=== PATIENT | female | born 1980 ===

== ENCOUNTER 2020-08-27 13:00 | Outpatient (REF) | payer OTHER, SELFPAY ==
[2020-08-27 14:10] LABS: MANUAL DIFF FLAG NO
[2020-08-27 14:12] LABS: Basophils Absolute Auto 0.1 X10*3/uL (0.0-0.2); Basophils Percent Auto 0.5 % (0-2); Eosinophils Absolute Auto 0.1 X10*3/uL (0.0-0.4); Eosinophils Percent Auto 0.5 % (0-4); Hematocrit 39.3 % (37-47); Hemoglobin 12.9 g/dl (12.0-16.0); Imm Gran Abs Auto 0.04 X10*3/uL (0.00-0.03); Imm Gran Pct Auto 0.3 % (0.0-0.4); Lymphocytes Absolute Auto 2.3 X10*3/uL (1.2-4.9); Lymphocytes Percent Auto 18.9 % (20-40); Mean Corpuscular HGB Conc 32.8 g/dl (31.0-35.0); Mean Corpuscular Hemoglobin 28.7 pg (27.0-33.0); Mean Corpuscular Volume 87.3 fL (80-98); Monocytes Absolute Auto 0.6 X10*3/uL (0.1-1.2); Monocytes Percent Auto 4.8 % (2-11); Neutrophils Absolute Auto 9.3 X10*3/uL (2.0-8.3); Platelet Count 365 X10*3/uL (160-400); White Blood Count 12.4 X10*3/uL (4.8-10.8)
[2020-08-27 14:58] LABS: Alanine Aminotransferase 8 U/L (0-31); Albumin Level 3.8 g/dL (3.5-5.0); Alkaline Phosphatase 49 U/L (39-117); Anion Gap 12 (12-20); Aspartate Amino Transferase 12 U/L (5-31); Bilirubin Total 0.6 mg/dL (0.0-1.0); Blood Urea Nitrogen 9 mg/dL (9-16); Calcium 9.1 mg/dL (8.4-10.2); Carbon Dioxide 30 mmol/L (22-29); Chloride 99 mmol/L (96-108); Cholesterol 166 mg/dL; Estimated Glomerular Filt Rate > 60; Glucose Random 100 mg/dL (60-115); HDL Cholesterol 48 mg/dL; LDL Cholesterol Calculated 106 mg/dl; Potassium 3.8 mmol/L (3.3-5.1); Sodium 137 mmol/L (135-145); Total Protein 6.8 g/dL (6.5-8.0); Triglycerides 62 mg/dL
[2020-08-27 15:20] LABS: TSH reflex Free T4 7.69 uIU/mL (0.32-4.0)
[2020-08-27 15:55] LABS: Free T4 (Free Thyroxine) 1.11 ng/dL (0.71-1.85)
[2020-08-29 00:22] LABS: LDL Cholesterol Direct 95 mg/dL (<100)
== END 2020-08-27 13:01 | disposition home or self-care (01) ==
LOC: HO.WFDLDS 13:00
PROVIDERS: Visit Provider Family Medicine
DX: Z00.00 Encounter for general adult medical examination without abnormal findings (principal); K52.9 Noninfective gastroenteritis and colitis, unspecified; R93.89 Abnormal findings on diagnostic imaging of other specified body structures
CPT/HCPCS: 36415; 80053; 80061; 83721; 84439; 84443; 85025

== ENCOUNTER 2021-06-20 19:33 | Outpatient (REF) | payer OTHER, SELFPAY | END 2021-06-20 19:34 | disposition home or self-care (01) | LOC: HO.LNP 19:33 | PROVIDERS: Visit Provider Family Medicine | DX: R30.0 Dysuria (principal) | CPT/HCPCS: 87086; 87088; 87186 ==

== ENCOUNTER → 2021-10-26 10:55 | Outpatient (BNVA) | payer OTHER, SELFPAY | PROVIDERS: PCP Family Medicine; Visit Provider Internal Medicine Endocrinology, Diabetes & Metabolism | DX: E03.9 Hypothyroidism, unspecified (principal) | CPT/HCPCS: 99202 ==

== ENCOUNTER 2021-12-06 13:36 | Outpatient (REF) | payer OTHER, SELFPAY ==
[2021-12-06 13:58] LABS: MANUAL DIFF FLAG NO
[2021-12-06 14:17] LABS: Basophils Absolute Auto 0.1 X10*3/uL (0.0-0.2); Basophils Percent Auto 0.5 % (0-2); Eosinophils Absolute Auto 0.1 X10*3/uL (0.0-0.4); Eosinophils Percent Auto 0.7 % (0-4); Hematocrit 38.6 % (37.0-47.0); Hemoglobin 12.9 g/dl (12.0-16.0); Imm Gran Abs Auto 0.04 X10*3/uL (0.00-0.03); Imm Gran Pct Auto 0.3 % (0.0-0.4); Lymphocytes Absolute Auto 2.1 X10*3/uL (1.2-4.9); Lymphocytes Percent Auto 17.8 % (20-40); Mean Corpuscular HGB Conc 33.4 g/dl (31.0-35.0); Mean Corpuscular Hemoglobin 29.9 pg (27.0-33.0); Mean Corpuscular Volume 89.6 fL (80.0-98.0); Mean Platelet Volume 10.4 fL (9.4-12.3); Monocytes Absolute Auto 0.5 X10*3/uL (0.1-1.2); Monocytes Percent Auto 4.3 % (2-11); Neutrophils Absolute Auto 8.9 x10*3/uL (2.0-8.3); Neutrophils Percent Auto 76.4 % (45-73); Platelet Count 228 X10*3/uL (160-400); Red Blood Count 4.31 X10*6/uL (4.20-5.50); Red Cell Distribution Width 12.4 % (11.0-16.0); White Blood Count 11.6 X10*3/uL (4.8-10.8)
[2021-12-06 15:04] LABS: Alanine Aminotransferase 12 U/L (0-31); Alkaline Phosphatase 51 U/L (39-117); Anion Gap 11 (12-20); Aspartate Amino Transferase 19 U/L (5-31); Bilirubin Total 0.5 mg/dL (0.0-1.0); Blood Urea Nitrogen 17 mg/dL (9-16); Calcium 9.3 mg/dL (8.4-10.2); Carbon Dioxide 27 mmol/L (22-29); Chloride 104 mmol/L (96-108); Estimated Glomerular Filt Rate > 60; Glucose Random 83 mg/dL (60-115); Potassium 3.9 mmol/L (3.3-5.1); Sodium 138 mmol/L (135-145); Total Protein 7.1 g/dL (6.5-8.0)
[2021-12-06 15:25] LABS: Free T4 (Free Thyroxine) 0.88 ng/dL (0.71-1.85); Thyroid Stimulating Hormone 6.82 uIU/mL (0.32-4.0)
[2021-12-07 22:06] LABS: Triiodothyronine T3 Total 86 ng/dL (76-181)
[2021-12-08 02:18] LABS: Thyroid Peroxidase Antibodies 125 IU/mL (<9)
== END 2021-12-06 13:37 | disposition home or self-care (01) ==
LOC: HO.LAB 13:36
PROVIDERS: PCP Family Medicine; Visit Provider Internal Medicine Endocrinology, Diabetes & Metabolism
DX: Z00.00 Encounter for general adult medical examination without abnormal findings (principal); E03.9 Hypothyroidism, unspecified
CPT/HCPCS: 36415; 80053; 84439; 84443; 84480; 85025; 86376

== ENCOUNTER 2022-04-20 11:47 | Outpatient (REF) | payer OTHER, SELFPAY ==
[2022-04-20 13:16] LABS: Thyroid Stimulating Hormone 1.08 uIU/mL (0.32-4.0)
== END 2022-04-20 11:48 | disposition home or self-care (01) ==
LOC: HO.LAB 11:47
PROVIDERS: PCP Family Medicine; Visit Provider Internal Medicine Endocrinology, Diabetes & Metabolism
DX: E03.9 Hypothyroidism, unspecified (principal)
CPT/HCPCS: 36415; 84439; 84443

== ENCOUNTER → 2022-06-13 11:24 | Outpatient (BNVA) | payer OTHER, SELFPAY | PROVIDERS: PCP Family Medicine; Visit Provider Internal Medicine Endocrinology, Diabetes & Metabolism | DX: E03.9 Hypothyroidism, unspecified (principal) | CPT/HCPCS: 99212 ==

== ENCOUNTER 2022-10-06 13:59 | Outpatient (REF) | payer OTHER, SELFPAY ==
[2022-10-06 14:55] LABS: Appearance Urine Cloudy; Color Urine Yellow; Glucose Urine UA Negative (Negative); Leukocyte Esterase Urine Small (1+) (Negative); Nitrite Urine Negative (Negative); UMIC TRIGGER UA YES; Urine Blood Small (1+) (Negative); Urine Ketones Negative (Negative); Urine Protein Negative (Neg-Trace)
[2022-10-06 15:07] LABS: Bacteria Urine None Seen (None Seen); Hyaline Casts Urine 0-2 /LPF (0-2); RBC Urine 0-2 /HPF (0-2)
[2022-10-06 15:25] LABS: Alanine Aminotransferase 10 U/L (0-31); Alkaline Phosphatase 45 U/L (39-117); Anion Gap 10 (12-20); Aspartate Amino Transferase 16 U/L (5-31); Bilirubin Total 0.7 mg/dL (0.0-1.0); Blood Urea Nitrogen 12 mg/dL (9-16); Calcium 9.3 mg/dL (8.4-10.2); Carbon Dioxide 28 mmol/L (22-29); Chloride 105 mmol/L (96-108); Cholesterol 196 mg/dL; Estimated Glomerular Filt Rate > 60; Glucose Fasting 77 mg/dL (60-99); HDL Cholesterol 53 mg/dL; LDL Cholesterol Calculated 133 mg/dl; Potassium 4.2 mmol/L (3.3-5.1); Sodium 139 mmol/L (135-145); Total Protein 6.9 g/dL (6.5-8.0); Triglycerides 51 mg/dL
[2022-10-06 15:27] LABS: Creatinine Urine 127.28 mg/dL
[2022-10-06 15:44] LABS: Free T4 (Free Thyroxine) 1.01 ng/dL (0.71-1.85); Thyroid Stimulating Hormone 4.75 uIU/mL (0.32-4.0)
[2022-10-08 10:14] LABS: Triiodothyronine T3 Total 111 ng/dL (76-181)
== END 2022-10-06 14:00 | disposition home or self-care (01) ==
LOC: HO.LAB 13:59
PROVIDERS: PCP Family Medicine; Visit Provider Family Medicine
DX: Z00.00 Encounter for general adult medical examination without abnormal findings (principal); E03.9 Hypothyroidism, unspecified; I10 Essential (primary) hypertension
CPT/HCPCS: 36415; 80053; 80061; 81001; 82043; 84439; 84443; 84480

== ENCOUNTER 2022-10-26 15:05 | Outpatient (REF) | payer OTHER, SELFPAY ==
[2022-10-26 15:25] LABS: MANUAL DIFF FLAG NO
[2022-10-26 15:54] LABS: Basophils Absolute Auto 0.1 X10*3/uL (0.0-0.2); Basophils Percent Auto 0.7 % (0-2); Eosinophils Absolute Auto 0.1 X10*3/uL (0.0-0.4); Eosinophils Percent Auto 0.8 % (0-4); Hemoglobin 12.6 g/dl (12.0-16.0); Imm Gran Abs Auto 0.04 X10*3/uL (0.00-0.03); Imm Gran Pct Auto 0.4 % (0.0-0.4); Lymphocytes Percent Auto 29.3 % (20-40); Mean Corpuscular HGB Conc 33.2 g/dl (31.0-35.0); Mean Corpuscular Hemoglobin 29.6 pg (27.0-33.0); Mean Corpuscular Volume 89.2 fL (80.0-98.0); Mean Platelet Volume 10.8 fL (9.4-12.3); Monocytes Absolute Auto 0.6 X10*3/uL (0.1-1.2); Monocytes Percent Auto 5.7 % (2-11); Neutrophils Absolute Auto 6.4 x10*3/uL (2.0-8.3); Neutrophils Percent Auto 63.1 % (45-73); Platelet Count 210 X10*3/uL (160-400); Red Blood Count 4.26 X10*6/uL (4.20-5.50); Red Cell Distribution Width 12.3 % (11.0-16.0); White Blood Count 10.1 X10*3/uL (4.8-10.8)
[2022-10-26 17:30] LABS: Appearance Urine Clear; Color Urine Yellow; Glucose Urine UA Negative (Negative); Leukocyte Esterase Urine Negative (Negative); Nitrite Urine Negative (Negative); PH 6.5 (5.0-9.0); Specific Gravity - Urine 1.015 (1.005-1.025); Urine Blood Negative (Negative); Urine Ketones Negative (Negative); Urine Protein Negative (Neg-Trace)
== END 2022-10-26 15:06 | disposition home or self-care (01) ==
LOC: HO.LAB 15:05
PROVIDERS: PCP Family Medicine; Visit Provider Family Medicine
DX: Z00.00 Encounter for general adult medical examination without abnormal findings (principal)
CPT/HCPCS: 36415; 81003; 85025

== ENCOUNTER → 2023-12-20 16:03 | Outpatient (AMB) | payer OTHER, SELFPAY ==
--- NOTE | 2023-12-20 16:15 | A.OFFPC_ITS ---
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 Is last menstrual period known: Yes Last menstrual period: 11/27/23 Allergies No Known Allergies Allergy (Verified 12/20/23 16:15) Medication List - Last Reconciled 12/21/23 by YOBANY Burrell levothyroxine 75 mcg PO DAILY multivitamin 1 tab PO DAILY Tobacco use date assessed: 12/20/23 Dental Screening Dental Screen Date: 12/20/23 Did you have a dental visit in the last 12 months?: Yes Did you have a dental problem in the last 6 months where you did not have access to dental care?: No Was dental information given to patient?: No HPI HPI Comments History of Present Illness Details This is a 43-year-old female with a past medical history of hypothyroidism and colon cancer presenting for a physical exam. She recently got back from [facility]. She is doing well. She is followed at [facility] for history of colon cancer. She is seen every 6 months. She has due for the next colonoscopy in March of 2025. No known recurrence. She is up-to-date with dental visits. She will schedule an eye exam. Dr. Pisano provided her order for mammogram this year. UTD with annual. Declines vaccines. Hypothyroidism is treated with 75 mcg of levothyroxine once daily. She would like a referral for allergy testing. Endorses alternating nasal dryness/congestion and runny nose on and off throughout the year. She had a cough. All of the symptoms resolve on antihistamine. When she eats certain foods she feels like her throat closes up for a moment. This has happens with strong flavors like domenico and spicy foods. No acid reflux, food regurgitation, abdominal pain, nausea, vomiting. She says this is not happening as frequently. It began about 7 months ago. When this happens she drinks water, and the symptoms subside. [facility] Surgical History (Reviewed 09/21/22 @ 16:28 by Ronit Haas [facility]) History of colectomy Family History (Reviewed 09/21/22 @ 16:28 by Ronit Haas [facility]) Mother Thyroid disease Father No problems noted. Social History (Updated 12/20/23 @ 16:17 by Ashley Ward [facility]) Housing: House Alcohol intake: never Patient Tobacco Use Status: Never used Tobacco e-Cigarette/Vaping Use: Never Used service: No Current occupational status: unemployed and other (House ) Cognitive needs: No Hearing needs: No Vision needs: No Female Reproductive History Menstrual Date of last menstrual period: 11/27/23 Questionnaire PHQ-9 Over the last 2 weeks, how often have you been bothered by any of the following problems? 1. Little interest or pleasure in doing things: not at all 2. Feeling down, depressed, or hopeless: not at all 3. Trouble falling or staying asleep, or sleeping too much: not at all 4. Feeling tired or having little energy: not at all 5. Poor appetite or overeating: not at all 6. Feeling bad about yourself - or that you are a failure or have let yourself or your family down: not at all 7. Trouble concentrating on things, such as reading the newspaper or watching television: not at all 8. Moving or speaking so slowly that other people could have noticed. Or the opposite - being so fidgety or restless that you have been moving around a lot more than usual: not at all 9. Thoughts that you would be better off or of hurting yourself in some way: not at all Total score: 0 Depression Screening Interpretation: Negative Depression Screening Done: Yes 56602 - PHQ-9 Billing: Yes Source: Developed by Drs. Jamar Kimball, Saadia Blanco, Osbaldo Huang and colleagues, with an educational la from [employer]. Thrive Questionnaire Date Thrive assessed: 12/20/23 I am a: Patient What is your living situation today?: I have a steady place to live Within the past 12 months, did the food you bought not last and you didn't have the money to get more?: Never true Within the past 12 months, did you worry whether your food would run out before you got money to buy more?: Never true Do you have trouble paying for medicines?: No Do you have trouble getting transportation to medical appointments?: No Do you have trouble paying your heating and electricity bill?: No Do you have trouble taking care of your child, family member or friend?: No Do you have trouble with day-to-day activities such as bathing, preparing meals, shopping, managing finances, etc.?: No Are you currently unemployed and looking for a job?: No Are you interested in more education?: No Please select the resources that you would like help with: None Currently or been in a relationship where the following occur: no concerns reported THRIVE Score: 0 AUDIT C Alcohol Use Questionnaire (AUDIT-C) 1. How often do you have a drink containing alcohol?: Never 3. How often do you have six or more drinks on one occasion?: Never Total Score: 0 MARTHA-7 AMB Questionnaire MARTHA-7 Date MARTHA - 7 assessed: 12/20/23 Feeling nervous, anxious, or on edge: 0 = Not at all Not being able to stop or control worryin = Not at all Worrying too much about different things: 0 = Not at all Trouble relaxin = Not at all Being so restless that it is hard to sit still: 0 = Not at all Becoming easily annoyed or irritable: 0 = Not at all Feeling afraid as if something awful might happen: 0 = Not at all Total MARTHA-7 score (0-4 normal; 5-9 mild; 10-14 moderate; 15-21 severe): 0 Source: Developed by Drs. Jamar Kimball, Saadia Blanco, Osbaldo Huang and colleagues, with an educational la from [employer]. MARTHA-7 Assessment Billing MARTHA-7 Assessment Tool: MARTHA-7 Assessment 70982 Review of Systems Const Details: Constitutional: No unexplained weight loss, fever, chills, fatigue or night sweats. Eyes: No vision changes, blurry vision, double vision, eye pain, eye redness, ey e discharge. ENT: No hearing loss, sinus pain or sore throat. Respiratory: No shortness of breath, cough or sputum production. Cardiovascular: No chest pain, chest pressure or chest discomfort. No pal pitations or pedal edema. Gastrointestinal: No anorexia, nausea, vomiting or diarrhea. No abdominal pain or blood in stool. Genitourinary: No dysuria, hematuria, urinary frequency. Neurologic: No headache, dizziness, syncope, unilateral weakness, ataxia, numbness or tingling in the extremities. Musculoskeletal: No muscle pain, back pain, joint pain or swelling. Hematologic/Lymphatics: No bleeding or bruising. No painful lymph nodes. Skin: No rash or itching. No hives. Endocrine: No cold or heat intolerance. No polyuria or polydipsia. Psychiatric: No depression or anxiety. No SI/HI. Physical exam (Primary Care) Vital Signs: Last Vital Signs Temp 98.2 F 12/20/23 16:19 Pulse 78 12/20/23 16:19 Resp 12 12/20/23 16:19 BP 98/66 12/20/23 16:46 Pulse Ox 98 12/20/23 16:19 Oxygen Delivery Method Room Air 12/20/23 16:19 BMI result Body Mass Index 27.9 Tobacco/Smoking Status: Tobacco use Status Tobacco use date assessed 12/20/23 12/20/23 16:24 Patient Tobacco Use Status Never used Tobacco 12/20/23 16:24 e-Cigarette/Vaping Use Never Used 12/20/23 16:24 PHQ-9: PHQ-9 Score PHQ-9: Total score 0 12/20/23 16:34 Depression Screening Interpretation: Negative Thrive Assessment: Date of Thrive Assessment Date Thrive assessed 12/20/23 12/20/23 16:24 Currently or been in a relationship where the following occur: no concerns reported Const Other: Constitutional: Alert, in no distress. Head: Normocephalic. Eyes: Pupils are equal, round and reactive to light. Extraocular muscles intact. Ear, Nose and Throat: Canals clear. TMs normal. Normal nasal mucosa. No nasal discharge. No oral lesions. Neck: Supple, Full range of motion. No lymphadenopathy. No palpable thyroid masses. Respiratory: Clear to auscultation. Cardiovascular: S1 S2 regular. No murmurs. Gastrointestinal: Abdomen soft, non-tender, non-distended. Normal bowel sounds. No palpable masses. Neurologic: No focal neurological deficits. Symmetric patellar reflexes. Moves all extremities spontaneously. Sensation intact bilaterally. Skin: No rashes or lesions. Musculoskeletal: No gross deformities. Normal range of motion. Extremities: Warm and well perfused. No clubbing, cyanosis or edema. 3+ peripheral pulses bilaterally. Psychiatric: Normal mood and affect Assessment and Plan Assessment & Plan (1) Routine physical examination: Code(s): Z00.00 - Encounter for general adult medical examination without abnormal findings Plan: Patient is seen today for a routine physical. As part of this visit we reviewed the following issues, which are considered and essential part of preventative health in this age group: - Breast Cancer screening - Annual Ammonium Hydroxide Operator exam - Screening for colon cancer - Blood pressure screening annually - Cholesterol screening - Osteoporosis prevention including calcium/vitamin D intake, weight bearing exercise & smoking cessation - Nutritional and exercise counseling - Counseling of injury prevention including fire prevention, smoke alarms and seat belt usage - Screening for depression - Education about skin cancer - Recommendations about immunizations - Recommendation of an eye exam - Screening for substance abuse (2) Swallowing problem: Comment: Does not sound like a food allergy. It lasts seconds and resolves with ingestion of water, and she does not have IgE mediated symptoms. Possible esophageal spasm triggered by strong foods. We will proceed with barium swallow study. Code(s): R13.10 - Dysphagia, unspecified (3) Allergic rhinitis: Code(s): J30.9 - Allergic rhinitis, unspecified Qualifiers: Allergic rhinitis seasonality: seasonal Allergic rhinitis trigger: unspecified Qualified Code(s): J30.2 - Other seasonal allergic rhinitis Plan: Continue antihistamine. Referred to Allergy and immunology. Patient would like Allergy testing. (4) Adenocarcinoma of sigmoid colon: Comment: No known recurrence. Followed by Oncology. Code(s): C18.7 - Malignant neoplasm of sigmoid colon (5) Hypothyroidism: Code(s): E03.9 - Hypothyroidism, unspecified Qualifiers: Hypothyroidism type: acquired Qualified Code(s): E03.9 - Hypothyroidism, unspecified Plan: Check TSH. Continue levothyroxine. Orders: Orders Complete Blood Count no Diff 12/20/23 C18.7 - Malignant neoplasm of sigmoid colon, E03.9 - Hypothyroidism, unspecified, Z13.6 - Encounter for screening for cardiovascular disorders Lipid Panel 12/20/23 C18.7 - Malignant neoplasm of sigmoid colon, E03.9 - Hypothyroidism, unspecified, Z13.6 - Encounter for screening for cardiovascular disorders TSH reflex Free T4 12/20/23 C18.7 - Malignant neoplasm of sigmoid colon, E03.9 - Hypothyroidism, unspecified, E66.9 - Obesity, unspecified, Z13.6 - Encounter for screening for cardiovascular disorders Comprehensive Met. Panel 12/20/23 C18.7 - Malignant neoplasm of sigmoid colon, E03.9 - Hypothyroidism, unspecified, Z13.6 - Encounter for screening for cardiovascular disorders FL barium swallow 12/20/23 R13.10 - Dysphagia, unspecified Referrals Allergy & Immunology Referral J30.2 - Other seasonal allergic rhinitis Medications: Refilled levothyroxine 75 mcg PO DAILY 90 tabs 3RF Coding Level of Care Code Est Pt Prev Care 40-64y(90951) Diagnoses Routine physical examination Z00.00 Swallowing problem R13.10 Seasonal allergic rhinitis, unspecified trigger J30.2 Allergic rhinitis seasonality: seasonal Allergic rhinitis trigger: unspecified Adenocarcinoma of sigmoid colon C18.7 Acquired hypothyroidism E03.9 Hypothyroidism type: acquired Additional Codes MARTHA-7 Assessment Billing - MARTHA-7 Assessment Tool: MARTHA-7 Assessment 23804 ([id number])
[2023-12-20 16:19] VITALS: BP 86/64; PULSE 78; RESP 12; TEMP 36.8; O2SAT 98; BMI 27.9
[2023-12-20 16:46] VITALS: BP 98/66
== END ==
PROVIDERS: PCP Family Medicine; Visit Provider Family Medicine
DX: Z00.00 Encounter for general adult medical examination without abnormal findings (principal); R13.10 Dysphagia, unspecified; J30.2 Other seasonal allergic rhinitis; C18.7 Malignant neoplasm of sigmoid colon; E03.9 Hypothyroidism, unspecified
CPT/HCPCS: 99396

== ENCOUNTER 2024-01-08 11:10 | Outpatient (REF) | payer OTHER, SELFPAY ==
[2024-01-08 11:43] LABS: Hematocrit 39.8 % (37.0-47.0); Hemoglobin 13.6 g/dl (12.0-16.0); Mean Corpuscular HGB Conc 34.2 g/dl (31.0-35.0); Mean Corpuscular Hemoglobin 30.3 pg (27.0-33.0); Mean Corpuscular Volume 88.6 fL (80.0-98.0); Mean Platelet Volume 10.7 fL (9.4-12.3); Platelet Count 204 X10*3/uL (160-400); Red Blood Count 4.49 X10*6/uL (4.20-5.50); Red Cell Distribution Width 12.5 % (11.0-16.0)
[2024-01-08 12:35] LABS: Alanine Aminotransferase 9 U/L (0-31); Albumin Level 4.2 g/dL (3.5-5.0); Alkaline Phosphatase 47 U/L (39-117); Anion Gap 10 (12-20); Aspartate Amino Transferase 17 U/L (5-31); Bilirubin Total 0.5 mg/dL (0.0-1.0); Blood Urea Nitrogen 15 mg/dL (9-16); Calcium 9.5 mg/dL (8.4-10.2); Carbon Dioxide 27 mmol/L (22-29); Chloride 104 mmol/L (96-108); Cholesterol 184 mg/dL (<200); Estimated Glomerular Filt Rate > 60; Glucose Random 88 mg/dL (60-115); HDL Cholesterol 56 mg/dL (>40); LDL Cholesterol Calculated 114 mg/dL (<100); Potassium 3.8 mmol/L (3.3-5.1); Sodium 137 mmol/L (135-145); TSH reflex Free T4 4.95 uIU/mL (0.32-4.0); Total Protein 7.3 g/dL (6.5-8.0); Triglycerides 71 mg/dL (<150)
[2024-01-08 13:16] LABS: Free T4 (Free Thyroxine) 0.93 ng/dL (0.71-1.85)
== END 2024-01-08 11:11 | disposition home or self-care (01) ==
LOC: HO.LAB 11:10
PROVIDERS: PCP Family Medicine; Visit Provider Physician Assistant Medical
DX: E03.9 Hypothyroidism, unspecified (principal); C18.7 Malignant neoplasm of sigmoid colon; Z13.6 Encounter for screening for cardiovascular disorders; E66.9 Obesity, unspecified
CPT/HCPCS: 36415; 80053; 80061; 84439; 84443; 85027

== ENCOUNTER 2024-02-14 16:19 | Outpatient (AMB) | payer OTHER, SELFPAY ==
--- NOTE | 2024-02-14 16:17 | A.OFFPC_ITS ---
Intake Visit Reasons: review labs/swallowing problem Intake Note: follow up with labs and trouble swallowing Allergies No Known Allergies Allergy (Verified 02/14/24 16:17) Tobacco use date assessed: 12/20/23 Dental Screening Dental Screen Date: 12/20/23 HPI review labs/swallowing problem HPI Details 43 y/o female presents to review CPE-lab s via telemedicine. Labs drawn 01/08/24. Reviewed labs with pt. Triglycerides 71. TC 184. LDL 114. HDL 56. Ongoing elevated TSH at 4.95. She is on levothyroxine 75 mcg daily. Has had complaints of difficulty swallowing. Has an appt. for a swallow study at the end of this month. HPI Comments History of Present Illness Details Documentation assistance for Steven Barber MD, was provided by Federico Kraft, Combat Systems Engineer on 02/14/2024 at 5:30 PM EST. I, Dr. Barber, have read, observed, and verified documentation. [facility] Surgical History (Reviewed 09/21/22 @ 16:28 by Ronit Haas [facility]) History of colectomy Family History Mother Thyroid disease Father No problems noted. Social History (Updated 12/20/23 @ 16:17 by Ashley Ward [facility]) Housing: House Alcohol intake: never Patient Tobacco Use Status: Never used Tobacco e-Cigarette/Vaping Use: Never Used service: No Current occupational status: unemployed and other (House ) Cognitive needs: No Hearing needs: No Vision needs: No Questionnaire Thrive Questionnaire Date Thrive assessed: 12/20/23 MARTHA-7 AMB Questionnaire MARTHA-7 Date MARTHA - 7 assessed: 12/20/23 Source: Developed by Drs. Jamar Kimball, Saadia Blanco, Osbaldo Huang and colleagues, with an educational la from [employer]. Review of Systems Const Denies chills, Denies fatigue, Denies fever(s), Denies headache(s) and Denies weakness ENT Denies dizziness and Denies headache(s) Card Denies dyspnea Resp Denies cough, Denies dyspnea, Denies wheezing and Denies other (shortness of breath) Musc Denies numbness and Denies tingling Neuro Denies dizziness, Denies headache(s), Denies numbness, Denies tingling and Denies weakness Psych Denies anxiety and Denies depression Endo Denies fatigue Aller/Immun Denies wheezing Physical exam (Primary Care) Tobacco/Smoking Status: Tobacco use Status Tobacco use date assessed 12/20/23 02/14/24 16:18 Patient Tobacco Use Status Never used Tobacco 02/14/24 16:18 e-Cigarette/Vaping Use Never Used 02/14/24 16:18 Thrive Assessment: Date of Thrive Assessment Date Thrive assessed 12/20/23 02/14/24 16:18 Telehealth Telehealth Telehealth Platform: Telephone Location of provider rendering services: practice address Location of patient: address on file Patient Identification confirmed using: Name, : Yes Telehealth method: voice only Patient verbally consented to treatment: Yes Patient verbally consented to billing insurance company: Yes Patient informed of any privacy concerns related to visit: Yes Minutes spent on Phone/Video with Pt.: 12 Assessment and Plan Assessment & Plan (1) Elevated LDL cholesterol level: Code(s): E78.00 - Pure hypercholesterolemia, unspecified Plan: Lipids?are?mildly?elevated Will?continue?to?monitor.??No?medication?recommended?at?this?time?but?she?can?wo rk?on?dietary?changes (2) Hypothyroidism: Code(s): E03.9 - Hypothyroidism, unspecified Qualifiers: Hypothyroidism type: acquired Qualified Code(s): E03.9 - Hypothyroidism, unspecified Plan: TSH?is?mildly?elevated.??Offered?to?adjust?her?dose?but?she?would?like?to?contin ue?levothyroxine?75?mcg?daily We?can?continue?to?monitor?her?lab?work (3) Swallowing problem: Comment: Does not sound like a food allergy. It lasts seconds and resolves with ingestion of water, and she does not have IgE mediated symptoms. Possible esophageal spasm triggered by strong foods. We will proceed with barium swallow study. Code(s): R13.10 - Dysphagia, unspecified Plan: She?has?an?appointment?for?a?barium?swallow?test. She?says?she?has?not?tried?an?acid?inhibitor Will?give?her?this?while?awaiting?the?barium?swallow?study?and?we?can?follow- up?on?these?in?about?a?month Medications: New famotidine 20 mg PO BEDTIME 14 days 14 tabs 0RF Coding Level of Care Code Tele Est Pt Level 2 (18877) Diagnoses Elevated LDL cholesterol level E78.00 Acquired hypothyroidism E03.9 Hypothyroidism type: acquired Swallowing problem R13.10
== END 2024-02-14 17:05 | disposition home or self-care (01) ==
LOC: HO.HMGFM 16:19
PROVIDERS: PCP Family Medicine; Visit Provider Family Medicine
DX: E78.00 Pure hypercholesterolemia, unspecified (principal); E03.9 Hypothyroidism, unspecified; R13.10 Dysphagia, unspecified
CPT/HCPCS: 99212

== ENCOUNTER 2024-02-28 09:08 | Outpatient (REF) | payer OTHER, SELFPAY ==
--- NOTE | ~2024-02-28 | FL_ITS ---
EXAMINATION: XR FLUOROSCOPY UPPER GI WITH AIR CLINICAL INFORMATION: Dysphagia. Colon cancer. COMPARISON: None TECHNIQUE: Fluoroscopic air contrast upper GI examination was performed utilizing standard techniques with thin and thick barium and effervescent granules. Numerous spot images were obtained. FINDINGS: Lateral cine images of the oropharynx and hypopharynx demonstrate normal swallow mechanism with normal epiglottic inversion and soft palate elevation. No tracheal penetration, glottic or subglottic aspiration identified. No nasopharyngeal reflux present. Hypopharyngeal structures appear normal without evidence of mass or diverticulum. There was no significant cricopharyngeal achalasia. A port is present in the right chest wall. Tip of the catheter overlies the distal SVC. Dual and single contrast images of the esophagus demonstrate normal caliber, contour, and mucosal pattern. No evidence of stricture, mass, or ulcerations identified. Esophageal peristalsis is mildly disorganized. No evidence of hiatus hernia identified. No significant gastroesophageal reflux was seen during the course of the examination and on reflux views. Dual contrast and single contrast images of the stomach demonstrated a normal contour. The gastric folds have a thickened appearance, suggestive of gastritis. There are multiple focal areas of contrast pooling in the fundus and body of the stomach that may represent small superficial aphthous ulcers. No masses are present. Contrast freely passed into the gastric antrum and duodenal bulb without delay. Single and air-contrast images of the duodenal bulb demonstrate no abnormality. The duodenal sweep has a normal appearance, course, and mucosal fold appearance. The imaged proximal jejunum has a normal fold pattern and caliber. FLUOROSCOPY TIME: 4 minutes 40 seconds Number of Spot Images: 5 Number of Cine: 14 DOSE AREA PRODUCT: 2090 uGy-m2 (microgray-meter squared) FL/FL barium swallow with air IMPRESSION: 1. Mildly disorganized peristalsis. 2. Thickened appearance the gastric rugal folds. In addition, there are multiple focal areas of contrast pooling in the fundus and body of the stomach. These findings are suggestive of erosive gastritis. Recommend correlation of the EGD. 3. Status post port placement. This procedure was performed by Catracho Mcghee PA-C, and supervised by Dr. Parra Electronically signed by: Wilfredo Parra MD 02/29/2024 03:56 PM EDT
== END 2024-02-28 09:09 | disposition home or self-care (01) ==
LOC: HO.XRAY 09:08
PROVIDERS: PCP Family Medicine; Visit Provider Physician Assistant Medical
DX: R13.10 Dysphagia, unspecified (principal)
CPT/HCPCS: 74221

== ENCOUNTER → 2024-02-28 09:10 | Outpatient (BNV) | payer OTHER, SELFPAY | PROVIDERS: PCP Family Medicine; Visit Provider Radiology Diagnostic Radiology | DX: R13.10 Dysphagia, unspecified (principal) | CPT/HCPCS: 74246 ==

== ENCOUNTER 2024-03-24 10:27 | Outpatient (REF) | payer OTHER, SELFPAY ==
[2024-03-24 11:39] LABS: TSH reflex Free T4 4.37 uIU/mL (0.32-4.0)
[2024-03-24 12:23] LABS: Free T4 (Free Thyroxine) 1.05 ng/dL (0.71-1.85)
== END 2024-03-24 10:28 | disposition home or self-care (01) ==
LOC: HO.LAB 10:27
PROVIDERS: PCP Family Medicine; Visit Provider Physician Assistant Medical
DX: K29.60 Other gastritis without bleeding (principal); E03.9 Hypothyroidism, unspecified
CPT/HCPCS: 36415; 84439; 84443; 87338

== ENCOUNTER 2024-04-17 11:32 | Outpatient (AMB) | payer OTHER, SELFPAY ==
--- NOTE | 2024-04-17 11:45 | A.OFFPC_ITS ---
Vital Signs 04/17/24 11:48 Height 5 ft 1.61 in Weight 150 lb 6 oz BMI 27.9 BP 95/60 Blood Pressure Location Lt brachial Position Sitting Respiration 16 Pulse 72 Pulse Source Pulse Oximeter Temp 96.3 F L Temp Source Temporal Artery Scan Pulse Oximetry (%) 98 Oxygen Delivery Method Room Air Intake Visit Reasons: f/u hypertension Intake Note: f/u for barium swallow test Allergies No Known Allergies Allergy (Verified 04/17/24 11:47) Medication List - Last Reconciled 04/17/24 by Steven Barber MD levothyroxine 75 mcg PO DAILY multivitamin 1 tab PO DAILY Tobacco use date assessed: 12/20/23 Dental Screening Dental Screen Date: 12/20/23 HPI f/u hypertension HPI Details 43 y/o female presents to f/u hypertensi on, dysphagia. Barium swallow study 02/28/24, per note shows: 1. Mildly disorganized peristalsis. 2. Thickened appearance the gastric ruga l folds. In addition, there are multiple focal areas of contrast pooling in the fundus and body of the stomach. These findings are suggestive of erosive gastritis. Recommend correlation of the EGD. 3. Status post port placement. Labs drawn 03/24/24. Reviewed labs with pt. TSH from 4.95 to 4.37 uIU/mL. She is on levothyroxine 75mcg daily. HPI Comments History of Present Illness Details Documentation assistance for Steven Barber MD, was provided by Federico Kraft, Forensic Dna Analyst on 04/17/2024 at 12:27 PM EST. I, Dr. Barber, have read, observed, and verified documentation. [facility] Medical History (Updated 02/29/24 @ 16:24 by YOBANY Burrell) Abnormal barium swallow Erosive gastritis Dysphagia Abnormal findings on esophagogastroduodenoscopy (EGD) Surgical History History of colectomy Family History Mother Thyroid disease Father No problems noted. Social History (Updated 12/20/23 @ 16:17 by Ashley Ward CMA) Housing: House Alcohol intake: never Patient Tobacco Use Status: Never used Tobacco e-Cigarette/Vaping Use: Never Used service: No Current occupational status: unemployed and other (House ) Cognitive needs: No Hearing needs: No Vision needs: No Questionnaire PHQ-9 Over the last 2 weeks, how often have you been bothered by any of the following problems? 1. Little interest or pleasure in doing things: not at all 2. Feeling down, depressed, or hopeless: not at all 3. Trouble falling or staying asleep, or sleeping too much: not at all 4. Feeling tired or having little energy: not at all 5. Poor appetite or overeating: not at all 6. Feeling bad about yourself - or that you are a failure or have let yourself or your family down: not at all 7. Trouble concentrating on things, such as reading the newspaper or watching television: not at all 8. Moving or speaking so slowly that other people could have noticed. Or the opposite - being so fidgety or restless that you have been moving around a lot more than usual: not at all 9. Thoughts that you would be better off or of hurting yourself in some way: not at all Total score: 0 Source: Developed by Drs. Jamar Kimball, Saadia Blanco, Osbaldo Huang and colleagues, with an educational la from [email or web address]. Thrive Questionnaire Date Thrive assessed: 12/20/23 I am a: Patient What is your living situation today?: I have a steady place to live Within the past 12 months, did the food you bought not last and you didn't have the money to get more?: Never true Within the past 12 months, did you worry whether your food would run out before you got money to buy more?: Never true Do you have trouble paying for medicines?: No Do you have trouble getting transportation to medical appointments?: No Do you have trouble paying your heating and electricity bill?: No Do you have trouble taking care of your child, family member or friend?: No Do you have trouble with day-to-day activities such as bathing, preparing meals, shopping, managing finances, etc.?: No Are you currently unemployed and looking for a job?: No Are you interested in more education?: No Please select the resources that you would like help with: None Currently or been in a relationship where the following occur: No concerns reported THRIVE Score: 0 AUDIT C Alcohol Use Questionnaire (AUDIT-C) 1. How often do you have a drink containing alcohol?: Never Total Score: 0 MARTHA-7 AMB Questionnaire MARTHA-7 Date MARTHA - 7 assessed: 12/20/23 Feeling nervous, anxious, or on edge: 0 = Not at all Not being able to stop or control worryin = Not at all Worrying too much about different things: 0 = Not at all Trouble relaxin = Not at all Being so restless that it is hard to sit still: 0 = Not at all Becoming easily annoyed or irritable: 0 = Not at all Feeling afraid as if something awful might happen: 0 = Not at all Total MARTHA-7 score (0-4 normal; 5-9 mild; 10-14 moderate; 15-21 severe): 0 Source: Developed by Drs. Jamar Kimball, Saadia Blanco, Osbaldo Huang and colleagues, with an educational la from [email or web address]. Review of Systems Const Denies chills, Denies fatigue, Denies fever(s), Denies headache(s) and Denies weakness ENT Denies dizziness and Denies headache(s) Card Denies dyspnea Resp Denies cough, Denies dyspnea, Denies wheezing and Denies other (shortness of breath) Musc Denies numbness and Denies tingling Neuro Denies dizziness, Denies headache(s), Denies numbness, Denies tingling and Denies weakness Psych Denies anxiety and Denies depression Endo Denies fatigue Aller/Immun Denies wheezing Physical exam (Primary Care) Vital Signs: Last Vital Signs Temp 96.3 F L 04/17/24 11:48 Pulse 72 04/17/24 11:48 Resp 16 04/17/24 11:48 BP 95/60 04/17/24 11:48 Pulse Ox 98 04/17/24 11:48 Oxygen Delivery Method Room Air 04/17/24 11:48 BMI result Body Mass Index 27.9 Tobacco/Smoking Status: Tobacco use Status Tobacco use date assessed 12/20/23 04/17/24 11:46 Patient Tobacco Use Status Never used Tobacco 04/17/24 11:46 e-Cigarette/Vaping Use Never Used 04/17/24 11:46 PHQ-9: PHQ-9 Score PHQ-9: Total score 0 04/17/24 12:26 Thrive Assessment: Date of Thrive Assessment Date Thrive assessed 12/20/23 04/17/24 11:46 Currently or been in a relationship where the following occur: No concerns reported Const General: well developed; No acute distress Nutritional Appearance: well nourished Orientation/consciousness: patient oriented x3 HENMT Head: Yes normocephalic and Yes atraumatic Eyes General: appearance normal, both eyes and all related structures Pupils: Equal, round and reactive pupils present EOM: EOMs intact bilaterally Resp Effort & Inspection: normal respiratory effort Neuro General: patient oriented x3 and gait normal Cranial nerves: Yes Equal, round and reactive pupils present Psych Affect: normal affect Coding Level of Care Code Est Pt Level 3 (05536) Diagnoses Dysphagia R13.10 Abnormal barium swallow R93.3 Acquired hypothyroidism E03.9 Hypothyroidism type: acquired Assessment & Plan Assessment & Plan (1) Dysphagia: Code(s): R13.10 - Dysphagia, unspecified Category: Medical Plan: 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 I?had?ordered?Nexiu m?and?also?famotidine?that?she?could?use?while?awaiting?appointment?with?GI Patient?did?not?take?these?medications.??She?did?follow?up?with?a?PA?at?[facility] ?gastroenterology?group who?did?not?seem?to?supply?her?with?any?answers. However,?patient?has?an?appointment?with??at?[facility]?gastroenterology. I?recommended?patient?treat?with?famotidine?at?bedtime?to?try?and?prevent?any?ni ghttime?reflux. Also?advised?she?avoid?any?trigger?foods?which?may?cause?gastritis?or?GERD. For?disorganized?peristalsis?I?recommended?she?eat?smaller?boluses?of?food?and drink?plenty?of?water?with?her?meals (2) Abnormal barium swallow: Code(s): R93.3 - Abnormal findings on diagnostic imaging of other parts of digestive tract Category: Medical Plan: As?above (3) Hypothyroidism: Code(s): E03.9 - Hypothyroidism, unspecified Category: Medical Qualifiers: Hypothyroidism type: acquired Qualified Code(s): E03.9 - Hypothyroidism, unspecified Plan: Will?recheck?her?thyroid?hormone?levels?prior?to?n ext?visit?and?we?can?discuss?by?telemedicine Orders: Orders Free T4 (Free Thyroxine) Today E03.9 - Hypothyroidism, unspecified Triiodothyronine T3 Total Today E03.9 - Hypothyroidism, unspecified Basic Metabolic Panel Today E03.9 - Hypothyroidism, unspecified, Z00.00 - Encounter for general adult medical examination without abnormal findings Thyroid Stimulating Hormone Today E03.9 - Hypothyroidism, unspecified Medications: Changed From famotidine 20 mg PO BEDTIME 14 tabs 0RF 14 days To famotidine 20 mg PO BEDTIME 30 days 30 tabs 1RF
[2024-04-17 11:48] VITALS: BP 95/60; PULSE 72; RESP 16; TEMP 35.7; O2SAT 98; BMI 27.9
== END 2024-04-17 12:49 | disposition home or self-care (01) ==
PROVIDERS: PCP Family Medicine; Visit Provider Family Medicine
DX: R13.10 Dysphagia, unspecified (principal); R93.3 Abnormal findings on diagnostic imaging of other parts of digestive tract; E03.9 Hypothyroidism, unspecified

== ENCOUNTER → 2024-04-17 11:32 | Outpatient (BNVA) | payer OTHER, SELFPAY | PROVIDERS: PCP Family Medicine; Visit Provider Family Medicine | DX: R13.10 Dysphagia, unspecified (principal); R93.3 Abnormal findings on diagnostic imaging of other parts of digestive tract; E03.9 Hypothyroidism, unspecified; Z85.038 Personal history of other malignant neoplasm of large intestine | CPT/HCPCS: 96127; 99212 ==

== ENCOUNTER 2024-05-21 14:32 | Outpatient (AMB) | payer OTHER, SELFPAY ==
--- NOTE | 2024-05-21 14:36 | A.OFFVIS_ITS ---
Vital Signs 05/21/24 14:37 Height 5 ft 1.61 in Weight 152 lb 1.903 oz BMI 28.2 BP 105/63 Blood Pressure Location Lt brachial Position Sitting Pulse 66 Intake Visit Reasons: Dysphagia & Gastritis Intake Note: Gil presents in the office as a new patient for Dysphagia and Gastritis. CC: She states that she was having issues swallowing but she feels like that is getting better. Hx of colon cancer stage 2 - She states that she does not have constipation nor diarrhea and also denies pains in the stomach. 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 Started noticing this almost 2 years ago but started shortly after the EGD/colo 2021. Notices it more with spicy food, or meat, rice. Feels that food gets stuck in upper esophagus, but no obstruction requiring medical attention. No N/V. No unintentional weight loss. No changes in stool. Fam hx: no esophageal ca or colon ca in FDRs. Barium swallow 02/08/24: 1. Mildly disorganized peristalsis. 2. Thickened appearance the gastric rugal folds. In addition, there are multiple focal areas of contrast pooling in the fundus and body of the stomach. These findings are suggestive of erosive gastritis. Recommend correlation of the EGD. 3. Status post port placement. Was seen at [facility] and was appropriately provided reassurance with plan for interval EGD if sx persisted. Was started on pepcid by PCP. [facility] Medical History (Updated 05/21/24 @ 14:39 by JEFE Robbins) Hx of colon cancer, stage II Abnormal barium swallow Erosive gastritis Dysphagia Abnormal findings on esophagogastroduodenoscopy (EGD) Surgical History (Updated 05/21/24 @ 14:39 by JEFE Robbins) Hx of colonoscopy History of esophagogastroduodenoscopy (EGD) History of colectomy Family History Mother Thyroid disease Father No problems noted. Social History Housing: House Alcohol intake: never Patient Tobacco Use Status: Never used Tobacco e-Cigarette/Vaping Use: Never Used service: No Current occupational status: unemployed and other (House ) Cognitive needs: No Hearing needs: No Vision needs: No Review of Systems Const All systems reviewed & are unremarkable except as noted in HPI and below Physical Exam Vital Signs: Last Vital Signs Pulse 66 05/21/24 14:37 BP 105/63 05/21/24 14:37 BMI result Body Mass Index 28.2 No apparent distress Nonicteric Abdomen soft, nondistended Alert and oriented x3, normal gait Assessment & Plan Assessment & Plan (1) Abnormal barium swallow: Code(s): R93.3 - Abnormal findings on diagnostic imaging of other parts of digestive tract Category: Medical (2) Erosive gastritis: Code(s): K29.60 - Other gastritis without bleeding Category: Medical (3) Dysphagia: Code(s): R13.10 - Dysphagia, unspecified Category: Medical Plan Reviewed with the pt that based on barium swallow and previous EGD does not have any major alarming findings however given her hx and significant concern over the sx can go ahead and book the EGD. Will primarily be to r/o small ring/web and bx for EoE. Can also perform empiric dilation at that time. Plan: - EGD to be booked - Cont pepcid - Follow up after EGD Coding Level of Care Code New Pt Level 4 (73111) Diagnoses Abnormal barium swallow R93.3 Erosive gastritis K29.60 Dysphagia R13.10
[2024-05-21 14:37] VITALS: BP 105/63; PULSE 66; BMI 28.2
== END 2024-05-21 14:49 | disposition home or self-care (01) ==
PROVIDERS: PCP Family Medicine; Referring Provider Family Medicine; Visit Provider Internal Medicine
DX: R93.3 Abnormal findings on diagnostic imaging of other parts of digestive tract (principal); K29.60 Other gastritis without bleeding; R13.10 Dysphagia, unspecified
CPT/HCPCS: 99204

== ENCOUNTER → 2024-05-21 14:32 | Outpatient (BNVA) | payer OTHER, SELFPAY | PROVIDERS: PCP Family Medicine; Visit Provider Internal Medicine | DX: R13.10 Dysphagia, unspecified (principal); K29.60 Other gastritis without bleeding; R93.3 Abnormal findings on diagnostic imaging of other parts of digestive tract | CPT/HCPCS: 99202 ==

== ENCOUNTER 2024-06-14 13:16 | Outpatient (REF) | payer OTHER, SELFPAY ==
[2024-06-14 15:41] LABS: Anion Gap 9 (12-20); Blood Urea Nitrogen 13 mg/dL (9-16); Calcium 9.2 mg/dL (8.4-10.2); Carbon Dioxide 28 mmol/L (22-29); Chloride 105 mmol/L (96-108); Estimated Glomerular Filt Rate > 60; Glucose Random 87 mg/dL (60-115); Sodium 138 mmol/L (135-145)
[2024-06-14 15:57] LABS: Free T4 (Free Thyroxine) 1.35 ng/dL (0.71-1.85); Thyroid Stimulating Hormone 2.87 uIU/mL (0.32-4.0)
[2024-06-16 05:03] LABS: Triiodothyronine T3 Total 94 ng/dL (76-181)
== END 2024-06-14 13:17 | disposition home or self-care (01) ==
LOC: HO.HMGCLDS 13:16
PROVIDERS: PCP Family Medicine; Visit Provider Family Medicine
DX: Z00.00 Encounter for general adult medical examination without abnormal findings (principal); E03.9 Hypothyroidism, unspecified
CPT/HCPCS: 36415; 80048; 84439; 84443; 84480

== ENCOUNTER → 2024-06-19 13:48 | Outpatient (AMB) | payer OTHER, SELFPAY ==
--- NOTE | 2024-06-19 13:44 | MHC.PC.OV ---
Intake Visit Reasons: f/u hypothyroidism Intake Note: f/u labs Allergies No Known Allergies Allergy (Verified 06/19/24 13:47) Tobacco use date assessed: 12/20/23 Dental Screening Dental Screen Date: 12/20/23 HPI f/u hypothyroidism HPI Details 43 y/o female presents to f/u hypothyroidism via telemedicine. Labs drawn 06/14/24. Reviewed labs with pt. TSH improved from 4.37 to 2.87. Free T4 1.35. She is on levothyroxine 75 mcg daily. HPI Comments History of Present Illness Details Documentation assistance for Steven Barber MD, was provided by Federico Kraft,? Grass Farmer on 06/19/2024 at 4:07 PM EST. I, Dr. Barber, have read, observed, and verified documentation. ?? [facility] Medical History (Updated 05/21/24 @ 14:39 by JEFE Robbins) Hx of colon cancer, stage II Abnormal barium swallow Erosive gastritis Dysphagia Abnormal findings on esophagogastroduodenoscopy (EGD) Surgical History (Updated 05/21/24 @ 14:39 by JEFE Robbins) Hx of colonoscopy History of esophagogastroduodenoscopy (EGD) History of colectomy Family History Mother Thyroid disease Father No problems noted. Social History Housing: House Alcohol intake: never Patient Tobacco Use Status: Never used Tobacco e-Cigarette/Vaping Use: Never Used service: No Current occupational status: unemployed and other (House ) Cognitive needs: No Hearing needs: No Vision needs: No Questionnaire Thrive Questionnaire Date Thrive assessed: 04/17/24 I am a: Patient What is your living situation today?: I have a steady place to live Within the past 12 months, did the food you bought not last and you didn't have the money to get more?: Never true Within the past 12 months, did you worry whether your food would run out before you got money to buy more?: Never true Do you have trouble paying for medicines?: No Do you have trouble getting transportation to medical appointments?: No Do you have trouble paying your heating and electricity bill?: No Do you have trouble taking care of your child, family member or friend?: No Do you have trouble with day-to-day activities such as bathing, preparing meals, shopping, managing finances, etc.?: No Are you currently unemployed and looking for a job?: No Are you interested in more education?: No Please select the resources that you would like help with: None Currently or been in a relationship where the following occur: No concerns reported THRIVE Score: 0 MARTHA-7 AMB Questionnaire MARTHA-7 Date MARTHA - 7 assessed: 12/20/23 Source: Developed by Drs. Jamar Kimball, Saadia Blanco, Osbaldo Huang and colleagues, with an educational la from [employer]. Review of Systems Const Denies chills, Denies fatigue, Denies fever(s), Denies headache(s) and Denies weakness ENT Denies dizziness and Denies headache(s) Card Denies dyspnea Resp Denies cough, Denies dyspnea, Denies wheezing and Denies other (shortness of breath) Musc Denies numbness and Denies tingling Neuro Denies dizziness, Denies headache(s), Denies numbness, Denies tingling and Denies weakness Psych Denies anxiety and Denies depression Endo Denies fatigue Aller/Immun Denies wheezing Physical exam (Primary Care) Tobacco/Smoking Status: Tobacco use Status Tobacco use date assessed 12/20/23 06/19/24 13:48 Patient Tobacco Use Status Never used Tobacco 06/19/24 13:48 e-Cigarette/Vaping Use Never Used 06/19/24 13:48 Thrive Assessment: Date of Thrive Assessment Date Thrive assessed 04/17/24 06/19/24 13:48 Currently or been in a relationship where the following occur: No concerns reported Telehealth Telehealth Telehealth Platform: Telephone Location of provider rendering services: practice address Location of patient: address on file Patient Identification confirmed using: Name, : Yes Telehealth method: voice only Patient verbally consented to treatment: Yes Patient verbally consented to billing insurance company: Yes Patient informed of any privacy concerns related to visit: Yes Minutes spent on Phone/Video with Pt.: 10 Coding Level of Care Code Tele Est Pt Level 2 (68415) Diagnoses Acquired hypothyroidism E03.9 Hypothyroidism type: acquired Erosive gastritis K29.60 Assessment & Plan Assessment & Plan (1) Hypothyroidism: Code(s): E03.9 - Hypothyroidism, unspecified Category: Medical Qualifiers: Hypothyroidism type: acquired Qualified Code(s): E03.9 - Hypothyroidism, unspecified Plan: Thyroid?hormone?levels?are?within?normal?range. She?is?taking?her?levothyroxine?as?prescribed Continue?current?medication?regimen (2) Erosive gastritis: Code(s): K29.60 - Other gastritis without bleeding Category: Medical Plan: Patient?had?symptoms?of?dysphagia?and?barium?swallow?implies?gastritis?esophagitis He?now?has?an?appointment?with??Karlee?for?EGD Continue?famotidine Orders: Orders Thyroid Stimulating Hormone Today E03.9 - Hypothyroidism, unspecified UA and rflx microscopic Today Z00.00 - Encounter for general adult medical examination without abnormal findings Comprehensive [place]. Panel Fast Today Z00.00 - Encounter for general adult medical examination without abnormal findings Triiodothyronine T3 Total Today E03.9 - Hypothyroidism, unspecified Free T4 (Free Thyroxine) Today E03.9 - Hypothyroidism, unspecified Lipid Panel Today Z00.00 - Encounter for general adult medical examination without abnormal findings Microalbumin, Random (w Creat) Today I10 - Essential (primary) hypertension
== END ==
LOC: HO.HMCFM 13:48
PROVIDERS: PCP Family Medicine; Visit Provider Family Medicine
DX: E03.9 Hypothyroidism, unspecified (principal); K29.60 Other gastritis without bleeding

== ENCOUNTER → 2024-06-19 13:48 | Outpatient (BNVA) | payer OTHER, SELFPAY | PROVIDERS: PCP Family Medicine; Visit Provider Family Medicine ==

== ENCOUNTER 2024-11-27 10:26 | Outpatient (REF) | payer OTHER, SELFPAY ==
--- OUTSIDE RECORDS SUMMARY | 2024-11-27 10:52 | XMS_ITS | Clinical Summary ---
Author Organization [facility] Address [address] [place] [address] Care Team Providers Care Family Sociologist Name Role Phone Steven Barber MD Primary Care Provider Encounters Date Type Department Care Team Description 10/10/2024 11:00 AM EDT - 10/10/2024 11:59 PM EDT [facility] at [address] [address] Encounter for screening mammogram for malignant neoplasm of breast Discharge Disposition: Home or Self Care from Last 3 Months Social History Tobacco Use Types Packs/Day Years Used Date Smoking Tobacco: Never Assessed Comments No Sex and Gender Information Value Date Recorded Sex Assigned at Female 08/27/2024 3:54 PM EST Legal Sex Female 6:21 AM EDT Gender Identity Female 08/27/2024 3:54 PM EST Sexual Orientation Straight 08/27/2024 3: 54 PM EST Obstetrics History Para Term AB IAB SAB Ectopic Multiple Livin g Live Births 4 Last Filed Vital Signs Vital Sign Reading Time Taken Comments Blood Pressure - - Pulse - - Temperature - - Respiratory Rate - - Oxygen Saturation - - Inhaled Oxygen Concentration - - Weight 66.7 kg (147 lb) 10/10/2024 11:12 AM EDT Height 160 cm (5' 3 ) 10/10/2024 11:12 AM EDT Body Mass Index 26.04 10/10/2024 11:12 AM EDT Plan of Treatment Health Maintenance Due Date Last Done Comments DTaP,Tdap,and Td Vaccines (1 - Tdap) 1998 Hepatitis B Vaccines (1 of 3 - 19+ 3-dose series) 1998 Pneumococcal Vaccine: Pediatrics (0 to 5 Years) and At-Risk Patients (6 to 64 Years) (1 of 2 - PCV) 1998 Colorectal Cancer Screening: Colonoscopy 10/18/2021 Depression Screening 10/18/2021 HIV Screening 10/18/2021 Hepatitis C Screening 10/18/2021 Social Influencers of Health Screening 10/18/2021 COVID-19 Vaccine (2023-2 5 season) 2024 07/13/2021, 09/23/2020, 08/16/2020 Influenza Vaccine (Season Ended) 2025 Breast Cancer Screening 10/10/2026 10/11/19, 11/20/2022, 08/18/2021 Cervical Cancer Screening: P ap Smear 08/22/2027 08/22/2024 HIB Vaccines Aged Out No longer eligi ble based on patient's age to complete this topic HPV Vaccines Aged Out No longer eligi ble based on patient's age to complete this topic Hepatitis A Vaccines Aged Out No long er eligible based on patient's age to complete this topic IPV Vaccines Aged Out No longer eligi ble based on patient's age to complete this topic MMR Vaccines Aged Out No longer eligi ble based on patient's age to complete this topic Meningococcal ACWY Vaccine Aged Out N o longer eligible based on patient's age to complete this topic Meningococcal B Vaccine Aged Out No l onger eligible based on patient's age to complete this topic RSV Immunization Patients Under 20 months Aged Out No longer eligible b ased on patient's age to complete this topic Varicella Vaccines Aged Out No longer eligible based on patient's age to complete this topic Procedures Procedure Name Priority Date/Time Associated Diagnosis Comments MG MAMMO DIGITAL SCREENING W DONALDO BILAT Routine 10/10/2024 11:19 AM EDT Encounter for screening mammogram for malignant neoplasm of breast PAP SMEAR Routine 08/22/2024 12:00 AM EST Encounter for gynecological examination (general) (routine) without abnormal findings from Last 3 Months or Most Recently Relevant to Health Maintenance Results * MG Mammo Digital Screening w Donaldo bilat (10/10/2024 11:19 AM EDT) Anatomical Region Laterality Modality Breast Bilateral Mammography 10/10/2024 11:2 4 AM EDT Impressions 10/10/2024 11:34 AM EDT No mammographic evidence of malignancy. A negative mammogram in the presence of a clinically suspicious palpable abnormality does not preclude the possibility of malignancy or alter the indications for biopsy. PQRI CPT II 3342F Code 58223, 77036 PQRI 225 CPT II 7025F TISSUE DENSITY: There are scattered areas of fibroglandular density. (BI-RADS category B) IMPRESSION: Benign. BI-RADS CATEGORY: 2 - BENIGN RECOMMENDATION: Screening bilateral mammogram is recommended in 1 year. Mammo Location: [facility], [address] [place] [address] -------- FINAL REPORT -------- Dictated By: Marcus Cope Dictated Date: 10/10/2024 11:24 ET Assigned Physician: Marcus Cope Reviewed and Electronically Signed By: Marcus Cope Signed Date: 10/10/2024 11:34 ET Workstation ID: [id number] Transcribed By: Self Edit Transcribed Date: 10/10/2024 11:25 ET Narrative 10/10/2024 11:34 AM EDT CLINICAL: The patient is a 44 years Female presenting for routine screening mammography. ??The patient has a history of bilateral breast cysts. ??The patient also has a personal history of colon carcinoma. COMPARISON: 11/18/2022 and 08/18/2021. ?? TECHNIQUE: Full-field digital mammography of the breasts bilaterally consisting of tomosynthesis in MLO and CC projection is performed in the KeyEffxe 2000-D unit. ??Computer aided detection utilizing the iCAD system was utilized. FINDINGS: The breasts are again seen to be composed of a combination of fatty and moderately dense fibroglandular elements. ??The 2 nodular densities in the right breast seen on the right study performed 11/18/2022, and subsequently demonstrated to represent cysts on ultrasound examination performed 11/24/2022, are no longer seen. ??A 1.3 cm nodule previously demonstrated to represent a cyst at the 2 to 3:00 position of the left breast anteriorly, is stable. ??A second cyst more inferiorly seen previously is no longer demonstrated. ??There are scattered punctate calcifications bilaterally, increased in size over time but are without suspicious interval change. ??There is no suspicious cluster of microcalcifications, suspicious mass, or area of architectural distortion. There is no skin thickening or nipple retraction. Procedure Note Marcus Cope MD - 10/10/2024 CLINICAL: The patient is a 44 years Female presenting for routinescreening mammography. The patient has a history of bilateral breastcysts. The patient also has a personal history of colon carcinoma. COMPARISON: 11/18/2022 and 08/18/2021. TECHNIQUE: Full-field digital mammography of the breasts bilaterallyconsisting of tomosynthesis in MLO and CC projection is performed in theHunt Country Hopsographe 2000-D unit. Computer aided detection utilizing the SciFluor Life Sciencesystem was utilized. FINDINGS: The breasts are again seen to be composed of a combination offatty and moderately dense fibroglandular elements. The 2 nodulardensities in the right breast seen on the right study performed 11/18/2022,and subsequently demonstrated to represent cysts on ultrasound examinationperformed 11/24/2022, are no longer seen. A 1.3 cm nodule previouslydemonstrated to represent a cyst at the 2 to 3:00 position of the leftbreast anteriorly, is stable. A second cyst more inferiorly seenpreviously is no longer demonstrated. There are scattered punctatecalcifications bilaterally, increased in size over time but are withoutsuspicious interval change. There is no suspicious cluster ofmicrocalcifications, suspicious mass, or area of architectural distortion.There is no skin thickening or nipple retraction. IMPRESSION: No mammographic evidence of malignancy. A negative mammogram in the presence of a clinically suspicious palpableabnormality does not preclude the possibility of malignancy or alter theindications for biopsy. PQRI CPT II 3342F Code 09637, 47467 PQRI 225 CPT II 7025F TISSUE DENSITY: There are scattered areas of fibroglandular density.(BI-RADS category B) IMPRESSION: Benign. BI-RADS CATEGORY: 2 - BENIGN RECOMMENDATION: Screening bilateral mammogram is recommended in 1 year. Mammo Location: [facility], [facility], [address] [place] [id number] -------- FINAL REPORT -------- Dictated By: Marcus Cope Dictated Date: 10/10/2024 11:24 ET Assigned Physician: Marcus Cope Reviewed and Electronically Signed By: Marcus Cope Signed Date: 10/10/2024 11:34 ET Workstation ID: [id number] Transcribed By: Self Edit Transcribed Date: 10/10/2024 11:25 ET Steven Pisano MD IMG BI PROCEDURES Final Result * Pap smear (08/22/2024 12:00 AM EST) Interpretation Negative for intraepithelial lesion or malignancy 08/26/2024 3:43 PM [facility] General Categorization Negative 08/26/2024 3:43 PM [facility] LMP 2024 08/26/2024 3:43 PM [facility] Specimen Adequacy Satisfactory for evaluation, endocervical/khalil sformation zone component present 08/26/2024 3:43 PM [facility] Pap Methodology Liquid Based Pap Test 08/26/2024 3:43 PM [facility] Disclaimer The Pap test is a screening test which carries an inherent false negative rate. These test results should be correlated with the patient's clinical findings and history. This Pap test was processed using an automated screening system. Technical cytopathology services provided by [facility], at [address] [place] [address] (CLIA # [id number]/Maria Dolores Meade MD, Church Secretary.) 08/26/2024 3:43 PM [facility] Console Pap Interpretation Reported 08/26/2024 3:43 PM [facility] Brushing/Spatula Cervix uteri structure / Unknown 08/22/2024 08/25/2024 7:54 AM EST Steven Pisano MD LAB CYTOLOGY ORDERABLES Final Result [facility] [address] [place] [address], from Last 3 Months or Most Recently Relevant to Health Maintenance [place] [address] [place] [address] PLAN Care Teams Family Sociologist Relationship Specialty Start Date End Date Steven Barber MD [address] [place] [address] Dr Cali [place] PCP - General Family Medicine 08/25/24
[2024-11-27 11:32] LABS: Appearance Urine Clear; Color Urine Yellow; Glucose Urine UA Negative (Negative); Leukocyte Esterase Urine Small (1+) (Negative); Nitrite Urine Negative (Negative); PH 8.5 (5.0-9.0); Specific Gravity - Urine 1.015 (1.005-1.025); UMIC TRIGGER UA YES; Urine Blood Negative (Negative); Urine Ketones Negative (Negative); Urine Protein Negative (Neg-Trace)
[2024-11-27 11:39] LABS: Bacteria Urine 2+ (None Seen); Hyaline Casts Urine 0-2 /LPF (0-2); RBC Urine 0-2 /HPF (0-2)
[2024-11-27 11:42] LABS: Alanine Aminotransferase 17 U/L (0-31); Albumin Level 4.2 g/dL (3.5-5.0); Alkaline Phosphatase 47 U/L (39-117); Anion Gap 8 (12-20); Aspartate Amino Transferase 22 U/L (5-31); Bilirubin Total 0.6 mg/dL (0.0-1.0); Blood Urea Nitrogen 13 mg/dL (9-16); Calcium 9.5 mg/dL (8.4-10.2); Carbon Dioxide 29 mmol/L (22-29); Chloride 105 mmol/L (96-108); Cholesterol 209 mg/dL (<200); Estimated Glomerular Filt Rate > 60; Glucose Fasting 87 mg/dL (60-99); HDL Cholesterol 68 mg/dL (>40); LDL Cholesterol Calculated 127 mg/dL (<100); Potassium 4.3 mmol/L (3.3-5.1); Sodium 138 mmol/L (135-145); Total Protein 7.3 g/dL (6.5-8.0); Triglycerides 70 mg/dL (<150)
[2024-11-27 12:01] LABS: Free T4 (Free Thyroxine) 0.99 ng/dL (0.71-1.85); Thyroid Stimulating Hormone 5.86 uIU/mL (0.32-4.0)
[2024-11-27 12:40] LABS: Creatinine Urine 73.15 mg/dL; Microalbumin Urine < 5.0 mg/L
[2024-11-28 05:38] LABS: Triiodothyronine T3 Total 104 ng/dL (76-181)
== END 2024-11-27 10:27 | disposition home or self-care (01) ==
LOC: HO.LAB 10:26
PROVIDERS: PCP Family Medicine; Visit Provider Family Medicine
DX: Z00.00 Encounter for general adult medical examination without abnormal findings (principal); I10 Essential (primary) hypertension; E03.9 Hypothyroidism, unspecified
CPT/HCPCS: 36415; 80053; 80061; 81001; 82043; 82570; 84439; 84443; 84480

== ENCOUNTER 2024-12-02 09:15 | Outpatient (AMB) | payer OTHER, SELFPAY ==
--- NOTE | 2024-12-02 09:12 | MHC.PC.OV ---
Intake Visit Reasons: f/u hypothyroidism, labs Intake Note: patient is scheduled to review lab results Pearl Peller Required: No Allergies No Known Allergies Allergy (Verified 12/02/24 09:12) Medication List - Last Reconciled 12/02/24 by Steven Barber MD levothyroxine 75 mcg PO DAILY Tobacco use date assessed: 12/20/23 Dental Screening Dental Screen Date: 12/20/23 HPI f/u hypothyroidism, labs HPI Details Patient?presents?by?telemedicine?to?review?lab?work TSH?has?been?elevated?in?the?past?and?we?were?adjusting?her?medications?by?having?her?take?an?extra?tablet?weekends She?has?been?having?trouble?doing?this?and?TSH?is?again?elevated LDL?cholesterol?is?above?goal?of?less?than?100 Patient?acknowledges?mild?dysuria.??Urine?studies?suspicious?for?[facility] Medical History (Updated 12/02/24 @ 14:13 by Steven Barber MD) Hx of colon cancer, stage II Abnormal barium swallow Erosive gastritis Dysphagia Abnormal findings on esophagogastroduodenoscopy (EGD) Surgical History (Updated 05/21/24 @ 14:39 by JEFE Robbins) Hx of colonoscopy History of esophagogastroduodenoscopy (EGD) History of colectomy Family History Mother Thyroid disease Father No problems noted. Social History Housing: House Alcohol intake: never Patient Tobacco Use Status: Never used Tobacco e-Cigarette/Vaping Use: Never Used service: No Current occupational status: unemployed and other (House ) Cognitive needs: No Hearing needs: No Vision needs: No Questionnaire Thrive Questionnaire Date Thrive assessed: 11/25/24 I am a: Patient What is your living situation today?: I have a steady place to live Within the past 12 months, did the food you bought not last and you didn't have the money to get more?: Never true Within the past 12 months, did you worry whether your food would run out before you got money to buy more?: Never true Do you have trouble paying for medicines?: No Do you have trouble getting transportation to medical appointments?: No Do you have trouble paying your heating and electricity bill?: No Do you have trouble taking care of your child, family member or friend?: No Do you have trouble with day-to-day activities such as bathing, preparing meals, shopping, managing finances, etc.?: No Are you currently unemployed and looking for a job?: No Are you interested in more education?: No Please select the resources that you would like help with: None Currently or been in a relationship where the following occur: No concerns reported THRIVE Score: 0 AUDIT C Alcohol Use Questionnaire (AUDIT-C) 1. How often do you have a drink containing alcohol?: Never Total Score: 0 MARTHA-7 AMB Questionnaire MARTHA-7 Date MARTHA - 7 assessed: 12/20/23 Feeling nervous, anxious, or on edge: 0 = Not at all Not being able to stop or control worryin = Not at all Worrying too much about different things: 0 = Not at all Trouble relaxin = Not at all Being so restless that it is hard to sit still: 0 = Not at all Becoming easily annoyed or irritable: 0 = Not at all Feeling afraid as if something awful might happen: 0 = Not at all Total MARTHA-7 score (0-4 normal; 5-9 mild; 10-14 moderate; 15-21 severe): 0 Source: Developed by Drs. Jamar Kimball, Saadia Blanco, Osbaldo Huang and colleagues, with an educational la from [employer]. Review of Systems Const Denies chills, Denies fatigue, Denies fever(s), Denies headache(s) and Denies weakness ENT Denies dizziness and Denies headache(s) Card Denies chest pain, Denies lightheadedness, Denies dyspnea and Denies other (Palpitations) Resp Denies cough, Denies dyspnea, Denies wheezing and Denies other ( shortness of breath) Details: Mild?dysuria Musc Denies numbness and Denies tingling Neuro Denies dizziness, Denies headache(s), Denies numbness, Denies tingling, Denies paresthesias and Denies weakness Psych Denies anxiety and Denies depression Endo Denies fatigue Aller/Immun Denies wheezing Physical exam (Primary Care) Tobacco/Smoking Status: Tobacco use Status Tobacco use date assessed 12/20/23 12/02/24 09:14 Patient Tobacco Use Status Never used Tobacco 12/02/24 09:14 e-Cigarette/Vaping Use Never Used 12/02/24 09:14 Thrive Assessment: Date of Thrive Assessment Date Thrive assessed 11/25/24 12/02/24 09:14 Currently or been in a relationship where the following occur: No concerns reported Telehealth Telehealth Telehealth Platform: Telephone Location of provider rendering services: practice address Location of patient: address on file Patient Identification confirmed using: Name, : Yes Telehealth method: voice only Patient verbally consented to treatment: Yes Patient verbally consented to billing insurance company: Yes Patient informed of any privacy concerns related to visit: Yes Minutes spent on Phone/Video with Pt.: 10 Coding Level of Care Code Tele Est Pt Level 2 (71530) Diagnoses Acquired hypothyroidism E03.9 Hypothyroidism type: acquired Elevated LDL cholesterol level E78.00 Dysuria R30.0 Assessment & Plan Assessment & Plan (1) Hypothyroidism: Code(s): E03.9 - Hypothyroidism, unspecified Category: Medical Qualifiers: Hypothyroidism type: acquired Qualified Code(s): E03.9 - Hypothyroidism, unspecified Plan: TSH?is?again?elevated Will?increase?levothyroxine?from?75?mcg?daily?to?88?mcg?daily Recheck?in?6-8?weeks (2) Elevated LDL cholesterol level: Code(s): E78.00 - Pure hypercholesterolemia, unspecified Category: Medical Plan: LDL?cholesterol?is?elevated?again Encouraged?diet?lower?in?saturated?fats?and?cholesterol (3) Dysuria: Code(s): R30.0 - Dysuria Category: Medical Plan: Will?send?script?for?Bactrim Orders: Orders Thyroid Stimulating Hormone 5 Weeks E03.9 - Hypothyroidism, unspecified Basic Metabolic Panel 5 Weeks E03.9 - Hypothyroidism, unspecified, Z00.00 - Encounter for general adult medical examination without abnormal findings Free T4 (Free Thyroxine) 5 Weeks E03.9 - Hypothyroidism, unspecified Triiodothyronine T3 Total 5 Weeks E03.9 - Hypothyroidism, unspecified Referrals Sleep Medicine Referral G47.30 - Sleep apnea, unspecified Medications: New sulfamethoxazole-trimethoprim 800-160 mg (Bactrim DS) 1 tab PO Q12H 3 days 6 tabs 0RF Changed From levothyroxine 75 mcg PO DAILY 90 tabs 3RF To levothyroxine 88 mcg PO DAILY 90 days 90 tabs 3RF
== END 2024-12-02 16:33 | disposition home or self-care (01) ==
LOC: HO.HMCFM 09:15
PROVIDERS: PCP Family Medicine; Visit Provider Family Medicine
DX: E03.9 Hypothyroidism, unspecified (principal); R30.0 Dysuria; E78.00 Pure hypercholesterolemia, unspecified

== ENCOUNTER → 2024-12-02 09:15 | Outpatient (BNVA) | payer OTHER, SELFPAY | PROVIDERS: PCP Family Medicine; Visit Provider Family Medicine ==

== ENCOUNTER 2025-02-24 13:05 | Outpatient (AMB) | payer OTHER, SELFPAY ==
--- NOTE | 2025-02-24 13:08 | A.OFFVIS_ITS ---
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 Patient states witnessed apnea/gasping. Goes to bed around 10:30pm wakes up around 7:30am. No history of Sleep studies. Accompanied by: Self / Same As Patient Allergies No Known Allergies Allergy (Verified 02/24/25 13:11) HPI Comments Details: 44 year old female referred to us for sleep apnea evaluation. She goes to bed at 10:30pm and wakes up at 7am, she has 1x bathroom break. She wakes up at night gasping for air, choking. She snores loudly. She is a side l. sleeper. She had rhinoplasty, for deviated septum in 2013. She has acid reflux and managed with diet and lifestyle. She had a colectomy in 2020 at [facility]. She takes 75mcg levothyroxine for hypothyroids. She denies morning headaches, bruxism. Denies symptoms of RLS. Her mood is good, memory is forgetful. Diet is stable and exercise 3x a week. Her bp is normally low, today 98/58. [facility] Medical History Hx of colon cancer, stage II Abnormal barium swallow Erosive gastritis Dysphagia Abnormal findings on esophagogastroduodenoscopy (EGD) Surgical History Hx of colonoscopy History of esophagogastroduodenoscopy (EGD) History of colectomy Family History Mother Thyroid disease Father No problems noted. Social History Housing: House Alcohol intake: never Patient Tobacco Use Status: Never used Tobacco e-Cigarette/Vaping Use: Never Used service: No Current occupational status: unemployed and other (House ) Cognitive needs: No Hearing needs: No Vision needs: No Physical Exam Vital Signs: Last Vital Signs Pulse 61 02/24/25 13:09 BP 98/58 L 02/24/25 13:09 Pulse Ox 98 02/24/25 13:09 Oxygen Delivery Method Room Air 02/24/25 13:09 BMI result Body Mass Index 28.8 Const General: cooperative, comfortable and no acute distress Nutritional Appearance: average body habitus Orientation/consciousness: patient oriented x3 HEENT Face and sinus: Yes face symmetric Teeth and gingiva: other (Mallampti score is 3) Throat: Yes other Eyes Pupils: Equal, round and reactive pupils present Neck Neck: Yes full ROM Resp Effort & Inspection: normal respiratory effort and able to speak in complete sentences Neuro General: patient oriented x3 and moves all extremities Cranial nerves: Yes Facial sensation intact/muscles of mastication intact, Yes Equal, round and reactive pupils present, Yes Normal accommodation reflex present, Yes Normal facial strength present, Yes Midline tongue present, Yes Ability to bilaterally rotate head present and Yes Ability to bilaterally elevate shoulders present Cognition (Neuro): normal cognition Gait exam (Neuro): Normal gait present Motor exam (neuro): 5/5 motor strength present throughout and Normal motor muscle tone present throughout Psych Appearance: grossly normal Mental Status: mental status grossly normal Thought process: Normal thought process present Assessment & Plan Assessment & Plan (1) Excessive daytime sleepiness: Code(s): G47.19 - Other hypersomnia Category: Medical (2) History of deviated nasal septum: Code(s): Z87.09 - Personal history of other diseases of the respiratory system Category: Medical (3) Fatigue: Code(s): R53.83 - Other fatigue Category: Medical Qualifiers: Fatigue type: chronic, unspecified Qualified Code(s): R53.82 - Chronic fatigue, unspecified Plan Excessive daytime sleepiness HST r/o MARLENE Labs to r/o deficiencies for marlene. May take 3mg -5mg melatonin at bedtime to induce sleep. f/u in 3 months. Orders: Orders RT home sleep study 02/24/25 G47.19 - Other hypersomnia Vitamin B12 and Folate 02/24/25 G47.19 - Other hypersomnia, R53.83 - Other fatigue TSH reflex Free T4 02/24/25 G47.19 - Other hypersomnia, R53.83 - Other fatigue Methylmalonic Acid 02/24/25 G47.19 - Other hypersomnia, G47.9 - Sleep disorder, unspecified, R53.83 - Other fatigue Homocysteine 02/24/25 G47.19 - Other hypersomnia, G47.9 - Sleep disorder, unspecified, R53.83 - Other fatigue Vitamin D 25-OH Total 02/24/25 G47.19 - Other hypersomnia, R53.83 - Other fatigue Vitamin B6 02/24/25 G47.19 - Other hypersomnia, R53.83 - Other fatigue Vitamin B1 02/24/25 G47.19 - Other hypersomnia, R53.83 - Other fatigue Ferritin 02/24/25 G47.19 - Other hypersomnia, R53.83 - Other fatigue Patient Instructions: Sleep Hygiene provided: set a scheduled bedtime and wake time to help regulate the circadian rhythm and balance the release of pituitary hormones. Sleep in a dark room, temperatures below 68 degrees, and no devices n bed. Limit caffeinated products 6 hours prior to bed, and limit fluids 2-4 hours prior to bed. Gentle night yoga, diffusing essential oils, and playing soft music can be relaxing. Coding Level of Care Code New Pt Level 4 (87898) Diagnoses Excessive daytime sleepiness G47.19 History of deviated nasal septum Z87.09 Chronic fatigue R53.82 Fatigue type: chronic, unspecified Sleep Questionnaire Difficulty falling asleep: No Difficulty staying asleep?: No Number of arousals: 1x Snoring: Yes Witnessed apneas: Yes Gasping arousals: Yes Nocturia: No GERD: Yes Vivid dreams: No Acting out dreams: No Abnormal behavior in sleep: No Abnormal movements in sleep: No Morning headaches: No Excessive daytime sleepiness: No Daytime naps: No Restless legs: No Hallucinations: No Sleep paralysis: No Drop attacks: No Sleep Study: No CPAP: No
[2025-02-24 13:09] VITALS: BP 98/58; PULSE 61; O2SAT 98; BMI 28.8
--- OUTSIDE RECORDS SUMMARY | 2025-02-24 13:51 | XMS_ITS | Encounter Summary ---
Author Organization [facility] Address [address] [facility] [address] [place] [address] Phone Care Team Providers Care Medical Staffing Coordinator Name Role Phone Alonso Khan MD, PhD Unavailable Brandon Bruner MD Primary Care Provider [phone] [phone] Johann Santana MD Unavailable Encounter Details Date Type Department Care Team (Late st Contact Info) Description 04/07/2024 Transcribe Orders [facility] Specimen Processing [address] [place] [address] Maria Dolores Ray, [facility] [address] [facility], [address] [place] [phone] [email or web address] Social History Tobacco Use Types Packs/Day Years [...] on filedocumented in this encounter Care Teams Medical Staffing Coordinator Relationship Specialty Start Date End Date Brandon Bruner MD [address] [place] [address] [place] [address] PCP - General Internal Medicine 10/04/20 Alonso Khan MD, PhD [address] [place] [phone] [email or web address] Primary Oncologist Medical Oncology 09/28/20 Johann Santana MD [address] [place] [phone] [email or web address] Medical Oncology 10/13/20 documented as of this encounter Additional Source Comments The information contained in this document represents components of the legal health record. It is not the complete legal health record.[facility]
--- OUTSIDE RECORDS SUMMARY | 2025-02-24 13:51 | XMS_ITS | Encounter Summary ---
Author Organization [facility] Address [address] [facility] [address] [place] [address] Phone Care Team Providers Care Supervisor Transferring And Boxing Name Role Phone Alonso Khan MD, PhD Unavailable Brandon Bruner MD Primary Care Provider + [phone] Johann Santana MD Unavailable Encounter Details Date Type Department Care Team (Late st Contact Info) Description 04/07/2024 Transcribe Orders [facility] Specimen Processing [address] [place] [address] Luz Ortega MD [address] [place] [phone] [email or web address] Social History Tobacco Use Types Packs/Day Years [...] on filedocumented in this encounter Care Teams Supervisor Transferring And Boxing Relationship Specialty Start Date End Date Brandon Bruner MD [address] [place] [address] [place] [address] PCP - General Internal Medicine 10/04/20 Alonso Khan MD, PhD [address] [place] [id number] [email or web address] Primary Oncologist Medical Oncology 09/28/20 Johann Santana MD [address] [place] [phone] [email or web address] Medical Oncology 10/13/20 documented as of this encounter Additional Source Comments The information contained in this document represents components of the legal health record. It is not the complete legal health record.[facility]
--- OUTSIDE RECORDS SUMMARY | 2025-02-24 13:51 | XMS_ITS ---
Author Organization [facility] Address [address] [facility] [address] [place] [address] Phone Care Team Providers Care Fire Services Plumber Name Role Phone Alonso Khan MD, PhD Unavailable Brandon Burner MD Primary Care Provider [phone] Johann Santana MD Unavailable Active Problems Problem Noted Date Diagnosed Date Malignant neoplasm of sigmoid colon 10/13/2020 Cancer Staging:Pathologic stage from 09/10/2020:Stage IIA(pT3, pN0, cM0) - Signed by Alonso Khan MD, PhD on 10/13/2020 Current Treatment and Therapy Plans No current plan information found. Past Treatment and Therapy Plans TREATMENT PLAN Plan Name Start Date Discontinue Date Treatment Medications Discontinue Reason Plan Provider Cycles CAPECITABINE 1 10/13/2020 capecitabine (XELODA) mJacinta Entered in error Alonso Khan MD, PhD Treatment not started
--- OUTSIDE RECORDS SUMMARY | 2025-02-24 13:51 | XMS_ITS | Clinical Summary ---
Author Organization [facility] Address [address] [place] [address] Care Team Providers Care Geophysical Prospecting Surveyor Name Role Phone Steven Barber MD Primary [...] for biopsy. PQRI CPT II 3342F Code 36014, 73975 PQRI 225 CPT II 7025F TISSUE DENSITY: There are scattered areas of fibroglandular density. (BI-RADS category B) IMPRESSION: Benign. BI-RADS CATEGORY: 2 - BENIGN RECOMMENDATION: Screening bilateral mammogram is recommended in 1 year. Mammo Location: [facility], [address] [place] [address] -------- FINAL REPORT -------- Dictated By: Marcus Cope Dictated Date: 10/10/2024 11:24 ET Assigned Physician: Marcus Cope Reviewed and Electronically Signed By: Marcus Cope Signed Date: 10/10/2024 11:34 ET Workstation ID: [id number] Transcribed By: Self Edit Transcribed Date: 10/10/2024 [...] and CC projection is performed in the [employer]ison Younge 2000-D unit. Computer aided detection utilizing the [facility] system was utilized. FINDINGS: The breasts are [...] MLO and CC projection is performed in theYYogaographe 2000-D unit. Computer aided detection utilizing the Oneflareystem was utilized. FINDINGS: The breasts are again [...] for biopsy. PQRI CPT II 3342F Code 04351, 95894 PQRI 225 CPT II 7025F TISSUE DENSITY: There are scattered areas of fibroglandular density.(BI-RADS category B) IMPRESSION: Benign. BI-RADS CATEGORY: 2 - BENIGN RECOMMENDATION: Screening bilateral mammogram is recommended in 1 year. Mammo Location: [facility], [address] [place] [id number] -------- FINAL REPORT -------- Dictated By: Marcus Cope Dictated Date: 10/10/2024 11:24 ET Assigned Physician: Marcus Cope Reviewed and Electronically Signed By: Marcus Cope Signed Date: 10/10/2024 11:34 ET Workstation ID: [id number] Transcribed By: Self Edit Transcribed Date: 10/10/2024 11:25 ET Steven Pisano MD IMG BI PROCEDURES Final Result * Pap smear (08/22/2024 12:00 AM EST) Interpretation Negative for intraepithelial lesion or malignancy 08/26/2024 3:43 PM EST [facility] General Categorization Negative 08/26/2024 3:43 PM EST [facility] LMP 2024 08/26/2024 3:43 PM EST [facility] Specimen Adequacy Satisfactory for evaluation, endocervical/khalil sformation zone component present 08/26/2024 3:43 PM EST [facility] Pap Methodology Liquid Based Pap Test 08/26/2024 3:43 PM EST [facility] Disclaimer The Pap test is a screening test which carries an inherent false negative rate. These test results should be correlated with the patient's clinical findings and history. This Pap test was processed using an automated screening system. Technical cytopathology services provided by [facility], at [address] [place] [id number] (CLIA # [id number]/Maria Dolores Meade MD, Canceling Machine Operator.) 08/26/2024 3:43 PM EST [facility] Console Pap Interpretation Reported 08/26/2024 3:43 PM [facility] Brushing/Spatula Cervix uteri structure / Unknown 08/22/2024 08/25/2024 7:54 AM EST us Steven Pisano MD LAB CYTOLOGY ORDERABLES Final Result [facility] [address] [place] [address], from Last 3 Months or Most Recently Relevant to Health Maintenance [place] [address] PLAN Care Teams Geophysical Prospecting Surveyor Relationship Specialty Start Date End Date Steven Barber MD [address] [place] [address] Dr Cali [place] PCP - General Family Medicine 08/25/24
--- OUTSIDE RECORDS SUMMARY | 2025-02-24 13:51 | XMS_ITS | Clinical Summary ---
Author Organization [facility] Address [address] [facility] [address] [place] [address] Phone Care Team Providers Care Hog Ribber Name Role Phone Alosno Khan MD, PhD Unavailable Brandon Bruner MD Primary Care Provider [phone] Johann Santana MD Unavailable Allergies No known active allergies Medications No known medications Active Problems Problem Noted Date Diagnosed Date Malignant neoplasm of sigmoid colon 10/13/2020 Cancer Staging:Pathologic stage from 09/10/2020:Stage IIA(pT3, pN0, cM0) - Signed by Alonso Khan MD, PhD on 10/13/2020 Family History Medical History Relation Comments Lung cancer Father Breast cancer Maternal Cousin dx in late 40s Ovarian cancer Paternal Cousin dx in late 40s Relation Status Comments Father Dx age 72. Heavy smoker. Maternal Cousin Dx in late 40s Paternal Cousin dx in late 40s Social History Tobacco Use Types Packs/Day Years [...] on file Sexual Orientation Not on file Last Filed Vital Signs Vital Sign Reading Time Taken Comments Blood Pressure 99/62 10/13/2020 2:44 PM EDT Pulse 76 10/13/2020 2:44 PM EDT Temperature 36.7 C (98 F) 10/13/2020 2:44 PM EDT Respiratory Rate 18 10/13/2020 2:44 PM EDT Oxygen Saturation 99% 10/13/2020 2:44 PM EDT Inhaled Oxygen Concentration - - Weight 59.9 kg (132 lb 0.9 oz) 10/13/2020 2:44 P M EDT Height 159 cm (5' 2.6 ) 10/13/2020 2:44 PM EDT Body Mass Index 23.69 10/13/2020 2:44 PM EDT Plan of Treatment Health Maintenance Due Date Last Done Comments Adult Td,Tdap Booster 1979 LIPID PANEL 1979 DEPRESSION SCREENING 1991 HEPATITIS C SCREENING 1997 HIV ONE-TIME SCREENING (18-6 5 YEARS) 1997 PNEUMOCOCCAL VACCINES (0-49 years) (1 of 2 - PCV) 1998 PAP SMEAR 2000 MAMMOGRAM 2019 COVID-19 VACCINE (2 - 2023-2 5 season) 2024 08/16/2020 COLOGUARD 2024 COLONOSCOPY 2024 COLORECTAL CANCER SCREENING 2024 FIT TEST 2024 FOBT 2024 SIGMOIDOSCOPY 2024 VIRTUAL COLONOSCOPY 2024 SMOKING STATUS SCREENING (On ce After 26 Yrs) Completed 10/13/2020 HEPATITIS A VACCINES Aged Out No long er eligible based on patient's age to complete this topic HIB VACCINES Aged Out No longer eligi ble based on patient's age to complete this topic MENINGOCOCCAL VACCINES (ACWY) Aged Out No longer eligible based on patient's age to complete this topic MENINGOCOCCAL VACCINES (B) Aged Out N o longer eligible based on patient's age to complete this topic Medical Devices Not on file Insurance Care Teams Hog Ribber Relationship Specialty Start Date End Date Brandon Bruner MD [address] [place] [address] [place] [address] PCP - General Internal Medicine 10/04/20 Alonso Khan MD, PhD [address] [place] [phone] [email or web address] Primary Oncologist Medical Oncology 09/28/20 Johann Santana MD [address] [place] [phone] [email or web address] 10/13/20 Additional Source Comments The information contained in this document represents components of the legal health record. It is not the complete legal health record.[facility]
--- OUTSIDE RECORDS SUMMARY | 2025-02-24 13:51 | XMS_ITS | Encounter Summary ---
Author Organization [facility] Address [address] [place] [address] Care Team Providers Care Assistant Manager Trainee Name Role Phone Steven Barber MD Primary Care Provider [phone] Encounter Details Date Type Department Care Team (Latest Contact Info) Description 08/25/2024 Lab Requisition [facility] - Main Lab [address] [place] [address] Steven Pisano MD [address] [phone] Encounter for gynecological examination (general) (routine) without abnormal findings Social History Tobacco Use Types Packs/Day Years Used Date Smoking Tobacco: Never Assessed Comments Unknown Sex and Gender Information Value Date Recorded Sex Assigned at Female 08/27/2024 3:54 PM EST Legal Sex Female 6:21 AM EDT Gender Identity Female 08/27/2024 3:54 PM EST Sexual Orientation Straight 08/27/2024 3: 54 PM EST documented as of this encounter Plan of Treatment Not on file documented as of this encounter Procedures Procedure Name Priority Date/Time Associated Diagnosis Comments PAP SMEAR Routine 08/22/2024 12:00 AM EST Encounter for gynecological examination (general) (routine) without abnormal findings documented in this encounter Results * Pap smear (08/22/2024 12:00 AM EST) Interpretation Negative for intraepithelial lesion or malignancy 08/26/2024 3:[address] [facility] General Categorization Negative 08/26/2024 3:43 PM [facility] LMP 2024 08/26/2024 3:43 PM [facility] Specimen Adequacy Satisfactory for evaluation, endocervical/khalil sformation zone component present 08/26/2024 3:43 PM [facility] Pap Methodology Liquid Based Pap Test 08/26/2024 3:43 PM [facility] Disclaimer The Pap test is a screening test which carries an inherent false negative rate. These test results should be correlated with the patient's clinical findings and history. This Pap test was processed using an automated screening system. Technical cytopathology services provided by [facility], at [address] [place] [address] (CLIA # [id number]/Maria Dolores Meade MD, Real Estate Subagent.) 08/26/2024 3:43 PM [facility] Console Pap Interpretation Reported 08/26/2024 3:43 PM [facility] Brushing/Spatula Cervix uteri structure / Unknown 08/22/2024 08/25/2024 7:54 AM EST us Steven Pisano MD LAB CYTOLOGY ORDERABLES Final Result Performing Organization Address City/State/[facility] Co de Phone Number [facility] [address] [place] [address], documented in this encounter Visit Diagnoses Diagnosis Encounter for gynecological examination (general) (routine) without abnormal findings documented in this encounter Care Teams Assistant Manager Trainee Relationship Specialty Start Date End Date Steven Barber MD [address] [place] [address] Dr Cali [place] PCP - General Family Medicine 08/25/24 documented as of this encounter
== END 2025-02-24 13:40 | disposition home or self-care (01) ==
LOC: HO.HSMS 13:06
PROVIDERS: PCP Family Medicine; Visit Provider Physician Assistant Medical
DX: G47.19 Other hypersomnia (principal); Z87.09 Personal history of other diseases of the respiratory system; R53.82 Chronic fatigue, unspecified
CPT/HCPCS: 99204

== ENCOUNTER → 2025-02-24 13:05 | Outpatient (BNVA) | payer OTHER, SELFPAY | PROVIDERS: PCP Family Medicine; Visit Provider Physician Assistant Medical | DX: G47.19 Other hypersomnia (principal); Z87.09 Personal history of other diseases of the respiratory system; R53.82 Chronic fatigue, unspecified | CPT/HCPCS: 99202 ==

== ENCOUNTER 2025-03-06 11:11 | Day surgery (SDC) | payer OTHER, SELFPAY ==
--- OUTSIDE RECORDS SUMMARY | 2025-02-20 11:47 | XMS_ITS | Encounter Summary ---
Author Organization [facility] Address [address] [place] [address] Phone Care Team Providers Care Industrial Specialist Name Role Phone Alonso Khan MD, PhD Unavailable Brandon Bruner MD Primary Care Provider + [phone] Johann Santana MD Unavailable Encounter Details Date Type Department Care Team (Late st Contact Info) Description 04/07/2024 Transcribe Orders [facility] Specimen Processing [address] [place] [address] Luz Ortega MD [address] [place] [id number] [email or web address] Social History Tobacco Use Types Packs/Day Years Used Date Smoking Tobacco: Never Smokeless Tobacco: Never Alcohol Use Standard Drinks/Week Comments Never 0 (1 standard drink = 0.6 oz pur e alcohol) Education Answer Date Recorded Are you interested in more education? Not on lelo e 10/27/2022 Are you concerned about learning? Not on file 10/27/2022 No 10/27/2022 No 10/27/2022 Digital Access Answer Date Recorded No 11/25/2022 No 11/25/2022 No 11/25/2022 Reliable internet access at home? Not on file 11/25/2022 Device with a working camera? Not on file Comments Unknown Sex and Gender Information Value Date Recorded Sex Assigned at Not on file Legal Sex Female 10:12 AM EDT Gender Identity Not on file Sexual Orientation Not on file documented as of this encounter Plan of Treatment Not on file documented as of this encounter Visit Diagnoses Not on filedocumented in this encounter Care Teams Industrial Specialist Relationship Specialty Start Date End Date Brandon Bruner MD [address] [place] [address] [place] [address] PCP - General Internal Medicine 10/04/20 Alonso Khan MD, PhD [address] [place] [id number] [email or web address] Primary Oncologist Medical Oncology 09/28/20 Johann Santana MD [address] [place] [phone] [email or web address] Oncology 10/13/20 documented as of this encounter Additional Source Comments The information contained in this document represents components of the legal health record. It is not the complete legal health record.[facility]
--- OUTSIDE RECORDS SUMMARY | 2025-02-20 11:47 | XMS_ITS | Clinical Summary ---
Author Organization [facility] Address [address] [place] [address] Care Team Providers Care Dean Of Admissions Name Role Phone Steven Barber MD Primary Care Provider Social History Tobacco Use Types Packs/Day Years [...] of 3 - 19+ 3-dose series) 1998 Colorectal Cancer Screening: Colonoscopy 10/18/2021 HIV Screening 10/18/2021 Hepatitis C Screening 10/18/2021 Social Influencers of Health Screening 10/18/2021 COVID-19 Vaccine (4 - 2023-2 5 season) 2024 07/13/2021, 09/23/2020, 08/16/2020 Depression Screening 07/02/2024 Influenza Vaccine (#1) 2025 Breast Cancer Screening 10/10/2026 10/11/19, 11/20/2022, [...] on patient's age to complete this topic Pneumococcal Vaccine: Pediatrics (0 to 5 Years) and At-Risk Patients (6 to 49 Years) Aged Out No longer eligible b ased [...] for biopsy. PQRI CPT II 3342F Code 64580, 06305 PQRI 225 CPT II 7025F TISSUE DENSITY: There are scattered areas of fibroglandular density. (BI-RADS category B) IMPRESSION: Benign. BI-RADS CATEGORY: 2 - BENIGN RECOMMENDATION: Screening bilateral mammogram is recommended in 1 year. Mammo Location: [facility], [facility], [address] [place] [address] -------- FINAL REPORT -------- Dictated By: Marcus Cope Dictated Date: 10/10/2024 11:24 ET Assigned Physician: Marcus Cope Reviewed and Electronically Signed By: Marcus Cope Signed Date: 10/10/2024 11:34 ET Workstation ID: [id number] Transcribed By: Self Edit Transcribed Date: 10/10/2024 11:25 ET Narrative 10/10/2024 11:34 AM EDT CLINICAL: The patient is a 44 years Female presenting for routine screening mammography. The patient has a history of bilateral breast cysts. The patient also has a personal history of colon carcinoma. COMPARISON: 11/18/2022 and 08/18/2021. TECHNIQUE: Full-field digital mammography of the breasts bilaterally consisting of tomosynthesis in MLO and CC projection is performed in the Vusione 2000-D unit. Computer aided detection utilizing the OneFoldD system was utilized. FINDINGS: The breasts are again seen to be composed of a combination of fatty and moderately dense fibroglandular elements. The 2 nodular densities in the right breast seen on the right study performed 11/18/2022, and subsequently demonstrated to represent cysts on ultrasound examination performed 11/24/2022, are no longer seen. A 1.3 cm nodule previously demonstrated to represent a cyst at the 2 to 3:00 position of the left breast anteriorly, is stable. A second cyst more inferiorly seen previously is no longer demonstrated. There are scattered punctate calcifications bilaterally, increased in size over time but are without suspicious interval change. There is no suspicious cluster of microcalcifications, suspicious [...] MLO and CC projection is performed in the[employer]AB Broadbandographe 2000-D unit. Computer aided detection utilizing the S[employer] Chargersystem was utilized. FINDINGS: The breasts are again [...] for biopsy. PQRI CPT II 3342F Code 39721, 39307 PQRI 225 CPT II 7025F TISSUE DENSITY: There are scattered areas of fibroglandular density.(BI-RADS category B) IMPRESSION: Benign. BI-RADS CATEGORY: 2 - BENIGN RECOMMENDATION: Screening bilateral mammogram is recommended in 1 year. Mammo Location: [facility], [facility], [address] [place] [address] -------- FINAL REPORT -------- Dictated By: Marcus Cope Dictated Date: 10/10/2024 11:24 ET Assigned Physician: Marcus Cope Reviewed and Electronically Signed By: Marcus Cope Signed Date: 10/10/2024 11:34 ET Workstation ID: [id number] Transcribed By: Self Edit Transcribed Date: 10/10/2024 11:25 ET Steven Pisano MD IMG BI PROCEDURES Final Result * Pap smear (08/22/2024 12:00 AM EST) Interpretation Negative for intraepithelial lesion or malignancy 08/26/2024 3:43 PM EST [facility] General Categorization Negative 08/26/2024 3:43 PM EST [facility] LMP 2024 08/26/2024 3:43 PM EST [facility] Specimen Adequacy Satisfactory for evaluation, endocervical/khalil sformation zone component present 08/26/2024 3:43 PM EST [facility] Pap Methodology Liquid Based Pap Test 08/26/2024 3:43 PM EST [facility] Disclaimer The Pap test is a screening test which carries an inherent false negative rate. These test results should be correlated with the patient's clinical findings and history. This Pap test was processed using an automated screening system. Technical cytopathology services provided by [facility], at [address] [place] [address] (CLIA # [id number]/Maria Dolores Meade MD, Financial Systems Administrator.) 08/26/2024 3:43 PM EST [facility] Console Pap Interpretation Reported 08/26/2024 3:43 PM [facility] Brushing/Spatula Cervix uteri structure / Unknown 08/22/2024 08/25/2024 7:54 AM EST us Steven Pisano MD LAB CYTOLOGY ORDERABLES Final Result [facility] [address] [place] [address], from Last 3 Months or Most Recently Relevant to Health Maintenance [place] [address] [place] [address] PLAN Care Teams Dean Of Admissions Relationship Specialty Start Date End Date Steven Barber MD [address] [place] [address] Dr Cali [place] PCP - General Family Medicine 08/25/24
--- NOTE | 2025-03-04 14:09 | P.CONAN_ITS ---
Documented by User: Nalini Gupta NP 03/04/25 14:11 HPI - Anesthesia Eval Consult details Narrative: 44 yr old female for upper endoscopy with possible balloon dilitation, colonoscopy MARLENE: saw neuro on 02/24/25 for excessive daytime sleepiness, home sleep study ordered. [facility] Active Problems Active Problems: All Active Problems (Updated 02/25/25 @ 00:22 by Shannon Sanchez PA-C) Fatigue (Acute) History of deviated nasal septum (Acute) Excessive daytime sleepiness (Acute) Sleep apnea (Acute) Abnormal barium swallow (Acute) Erosive gastritis (Acute) Dysphagia (Acute) Abnormal findings on esophagogastroduodenoscopy (EGD) (Acute) Elevated LDL cholesterol level (Acute) Allergic rhinitis (Acute) Swallowing problem (Acute) Breast cancer screening by mammogram (Acute) Dysuria (Acute) Screening for cervical cancer (Acute) Hypothyroidism (Acute) Annual physical exam (Acute) Status post laparoscopic-assisted sigmoidectomy (Acute) Adenocarcinoma of sigmoid colon (Acute) Elevated TSH (Acute) Mild dehydration (Acute) Laboratory examination ordered as part of a routine general medical examination (Acute) Colitis (Acute) Abnormal CT scan (Acute) Past Medical History Medical History Hx of colon cancer, stage II Abnormal barium swallow Erosive gastritis Dysphagia Abnormal findings on esophagogastroduodenoscopy (EGD) Family History Family History Mother Thyroid disease Father No problems noted. Surgical History Surgical History Hx of colonoscopy History of esophagogastroduodenoscopy (EGD) History of colectomy Social History Social History Housing: House Are you a primary home visit field care manager to a significant other at home: No Do you presently have visiting nurse or other home services: No Alcohol intake: never Patient Tobacco Use Status: Never used Tobacco e-Cigarette/Vaping Use: Never Used Use of substances other than those prescribed or required for medical reasons: No Have you been hit, kicked, punched, or otherwise hurt by someone within the past year? If so, by whom?: No Are you DNR?: No Advance Directives: No Advance Directives Information Provided: Yes Patient : No FDLMP: 02/26/2025 : No Poor oral hygiene: No service: No Current occupational status: unemployed and other (House ) Cognitive needs: No Hearing needs: No Vision needs: No Meds Allergies Allergy/AdvReac Type Severity Reaction Status Date / Time No Known Allergies Allergy Verified 03/06/25 11:40 Documented by User: Aniya Medrano MD 03/06/25 11:57 PMFSH Past Medical History Medical History Hx of colon cancer, stage II Abnormal barium swallow Erosive gastritis Dysphagia Abnormal findings on esophagogastroduodenoscopy (EGD) Family History Family History Mother Thyroid disease Father No problems noted. Family history of problems with anesthesia: No Surgical History Surgical History Hx of colonoscopy History of esophagogastroduodenoscopy (EGD) History of colectomy History of Problems with Anesthesia: No Social History Social History Housing: House Are you a primary home visit field care manager to a significant other at home: No Do you presently have visiting nurse or other home services: No Alcohol intake: never Patient Tobacco Use Status: Never used Tobacco e-Cigarette/Vaping Use: Never Used Use of substances other than those prescribed or required for medical reasons: No Have you been hit, kicked, punched, or otherwise hurt by someone within the past year? If so, by whom?: No Are you DNR?: No Advance Directives: No Advance Directives Information Provided: Yes Patient : No FDLMP: 02/26/2025 : No Poor oral hygiene: No service: No Current occupational status: unemployed and other (House ) Cognitive needs: No Hearing needs: No Vision needs: No Meds Allergies Allergy/AdvReac Type Severity Reaction Status Date / Time No Known Allergies Allergy Verified 03/06/25 11:40 Exam Airway Mallampati Class: II TM Dist: >3cm Neck ROM: Full Heart: rrr Lungs: cta Assessment and Plan Assessment Anesthesia Assessment: Anesthesia Plan Discussed and Chart Reviewed Final Anesthetic Review Family History of Problems with Anesthesia: No History of Problems with Anesthesia: No NPO: Yes ASA Class: II Final Preanesthetic Review: No Changes in Pt Med Stat, Meds/Allgs Chart Reviewed and Consent Obtained/Reviewed Patient Risk: Low Procedure Risk: Low Anesthetic Plan Anesthetic Plan: MAC: Disposition: Standard PACU
[2025-03-06 11:42] VITALS: BP 110/68; PULSE 66; RESP 12; TEMP 37; O2SAT 100; BMI 27.1
[2025-03-06] MEDS: Lactated Ringers 1,000 ML 100 ML IVCONT (11:56)
[2025-03-06 12:05] LABS: UPreg QC Valid YES
--- NOTE | 2025-03-06 12:52 | P.HPSUR_ITS ---
Pre-Procedural Eval Section A - 24 Hr Update-Section A only Date of Service: 03/06/25 Section B - Complete if H&P > 30 days Chief Complaint: Other gastritis without bleeding,dysphagia Details of Present Illness: Hx of colon cancer, stage II Abnormal barium swallow Erosive gastritis Dysphagia Abnormal findings on esophagogastroduodenoscopy (EGD) Surgical History (Updated 05/21/24 @ 14:39 by JEFE Robbins) Hx of colonoscopy History of esophagogastroduodenoscopy (EGD) History of colectomy Present Medications: see Short Stay Collaborative assessment Allergies: Allergies Allergy/AdvReac Type Severity Reaction Status Date / Time No Known Allergies Allergy Verified 03/06/25 11:40 Review of Systems Review of Systems Comment: 10 point ROS negative Exam Surgical H&P Exam: Normal: HEENT, Normal: Heart, Normal: Lungs, Normal: Extre mities, Normal: Abdomen, Normal: Skin and Normal: Neurological Plan Diagnosis/Plan: Unchanged I have reviewed the history and physical and performed a pertinent physical examination on my patient. No changes have occurred unless specified. Time Spent With Patient Time: Total time managing care of this patient today ____ minutes.
--- NOTE | 2025-03-06 13:48 | P.OPN-COLO_ITS ---
Colonoscopy Operative Note Operative Note Date of Service: 03/06/25 Narrative: Procedure: Upper endoscopy and colonoscopy Indication: Dysphagia, personal hx of colon cancer Endoscopist: Brittany Marie MD Anesthesia Provider: Aniya Han MD Anesthesia type: MAC Instrument: [id number] and [id number] EGD Procedure:?? The procedure, indications, preparation and potential complications were reviewed with the patient, who indicated understanding and gave written informed consent to proceed. The endoscope was introduced through the mouth, and advanced to the 2nd part of the duodenum. The mucosa was carefully examined on slow withdrawal of the endoscope. The patient tolerated the procedure well. There were no immediate complications.? EGD Findings:? * Esophagus:? Normal esophageal mucosa was noted. The Z-line was at 35 cm. Cold forceps biopsies were taken from middle and lower esophagus to rule out e osinophilic esophagitis. * Stomach:? Normal gastric mucosa. Retroflexion was performed in the cardia. Random cold forceps biopsies were taken from the stomach. * Duodenum:? Normal duodenal mucosa. Additional intervention: Soft tip Savary wire was introduced through the biopsy channel of the gastroscope and advanced to the antrum. ?The gastroscope was then backed out. ?Savary Nati bougie was advanced over the guidewire and the esophagus was dilated to 18 without any resistance felt. ?On relook, no heme or tear was noted. ? Colonoscopy Procedure:? The patient was then turned for the colonoscopy. A digital rectal exam was performed which was abnormal for external hemorrhoids.? A distal attachment cap was affixed to the tip of the scope and the colonoscope was then inserted through the anus and advanced through the colon and advanced to the cecum at 70 cm and terminal ileum.? Appendiceal orifice and ileocecal valve were identified. Mucosa was carefully examined under high definition white light as the instrument was slowly withdrawn in a retrograde panoramic fashion. Retroflexion was performed in rectum. The procedure was not difficult. The quality of the prep was BBPS: 2+2+2 = adequate Withdrawal time 9 minutes Limitations: No limitations Findings: Mucosa: Scar from previous colorectal anastomosis was noted at 20 cm. Normal colon and terminal ileum mucosa. Protruding lesions: * Small internal hemorrhoids without stigmata of recent bleeding. Excavated lesions: * Rare diverticula noted in sigmoid colon. Impression: 1. Normal esophagus (biopsy, dilation) 2. Normal stomach (biopsy) 3. Normal duodenum 4. Normal colon and terminal ileum mucosa (biopsy) 5. Previous anastomosis at 20 cm 6. Internal and external hemorrhoids Recommendations:?? * No obvious narrowing was noted during the upper endoscopy exam today. Empiric dilation was performed. * Follow-up path results * Avoid NSAIDs * Repeat colonoscopy in 5 years for colon cancer surveillance in this high risk patient.
[2025-03-06 13:53] VITALS: BP 88/55; PULSE 73; RESP 16; TEMP 37.1; O2SAT 99
[2025-03-06 13:58] VITALS: BP 98/66; PULSE 62; RESP 16; O2SAT 96
[2025-03-06 14:08] VITALS: BP 108/65; PULSE 63; RESP 16; O2SAT 99
[2025-03-06 14:23] VITALS: BP 103/62; PULSE 60; RESP 16; TEMP 36.9; O2SAT 99
== END 2025-03-06 15:05 | disposition home or self-care (01) ==
PROVIDERS: Nurse Practitioner; PCP Family Medicine; Visit Provider Internal Medicine
PROC: (CPT 45380; principal; 2025-03-06 12:30)
PROC: 0DJD8ZZ Inspection of Lower Intestinal Tract, Via Natural or Artificial Opening Endoscopic (ICD-10-PCS; CPT 45378; 2025-03-06 12:30)
DX: Z12.11 Encounter for screening for malignant neoplasm of colon (principal); Z85.038 Personal history of other malignant neoplasm of large intestine; Z90.49 Acquired absence of other specified parts of digestive tract; Z98.0 Intestinal bypass and anastomosis status; K57.30 Diverticulosis of large intestine without perforation or abscess without bleeding; K64.8 Other hemorrhoids; K64.4 Residual hemorrhoidal skin tags; R13.10 Dysphagia, unspecified; K29.60 Other gastritis without bleeding; Z56.0 Unemployment, unspecified
CPT/HCPCS: 45380; 43248; 43239; 81025; 88305; 88313; 88342; C1769; J1642; J2003; J2704

== ENCOUNTER → 2025-03-06 11:11 | Outpatient (BNV) | payer OTHER, SELFPAY | PROVIDERS: PCP Family Medicine; Visit Provider Internal Medicine | DX: R13.10 Dysphagia, unspecified (principal); Z85.038 Personal history of other malignant neoplasm of large intestine; K64.8 Other hemorrhoids | CPT/HCPCS: 43239; 45378 ==

== ENCOUNTER → 2025-05-11 14:01 | Outpatient (REF) | payer OTHER, SELFPAY ==
--- OUTSIDE RECORDS SUMMARY | 2025-05-11 16:19 | XMS_ITS | Encounter Summary ---
Author Organization [facility] Address [address] [facility] [address] [place] [address] Phone Care Team Providers Care Distribution Tech Name Role Phone Alonso Khan MD, PhD Unavailable Brandon Bruner MD Primary Care Provider + [phone] Johann Santana MD Unavailable Encounter Details Date Type Department Care Team (Late st Contact Info) Description 04/07/2024 Transcribe Orders [facility] Specimen Processing [address] [place] [address] Luz Ortega MD [address] [place] [address] [email or web address] Social History Tobacco Use Types Packs/Day Years [...] on filedocumented in this encounter Care Teams Distribution Tech Relationship Specialty Start Date End Date Brandon Bruner MD [address] [place] [address] [place] [address] PCP - General Internal Medicine 10/04/20 Alonso Khan MD, PhD [address] [place] [phone] [email or web address] Primary Oncologist Medical Oncology 09/28/20 Johann Santana MD [address] [place] [address] [email or web address] Medical Oncology 10/13/20 documented as of this encounter Additional Source Comments The information contained in this document represents components of the legal health record. It is not the complete legal health record.[facility]
--- OUTSIDE RECORDS SUMMARY | 2025-05-11 16:20 | XMS_ITS | Encounter Summary ---
Author Organization [facility] Address [address] [place] [address] Care Team Providers Care Document Specialist Name Role Phone Steven Barber MD Primary Care Provider [phone] Encounter Details Date Type Department Care Team (Latest Contact Info) Description 08/25/2024 Lab Requisition [facility] [address] [place] [address] Steven Pisano MD [address] [phone] Encounter for gynecological examination (general) (routine) without [...] lesion or malignancy 08/26/2024 3:43 PM EST [facility] General Categorization Negative 08/26/2024 3:43 PM [facility] LMP 2024 08/26/2024 3:43 PM [facility] Specimen Adequacy Satisfactory for evaluation, endocervical/khalil sformation zone component present 08/26/2024 3:43 PM [facility] Pap Methodology Liquid Based Pap Test 08/26/2024 3:43 PM [facility] Disclaimer The Pap test is a screening test which carries an inherent false negative rate. These test results should be correlated with the patient's clinical findings and history. This Pap test was processed using an automated screening system. Technical cytopathology services provided by [facility], at [address] [place] [address] (CLIA # [id number]/Maria Dolores Meade MD, Drier And Pulverizer Tender.) 08/26/2024 3:43 PM [facility] Console Pap Interpretation Reported 08/26/2024 3:43 PM [facility] Brushing/Spatula Cervix uteri structure / Unknown 08/22/2024 08/25/2024 7:54 AM EST us Steven Pisano MD LAB CYTOLOGY ORDERABLES Final Result Performing Organization Address City/State/[facility] Co de Phone Number [facility] [address] [place] [address], documented in this encounter Visit Diagnoses Diagnosis Encounter for gynecological examination (general) (routine) without abnormal findings documented in this encounter Care Teams Document Specialist Relationship Specialty Start Date End Date Steven Barber MD [address] [place] [address] Dr Cali [place] PCP - General Family Medicine 08/25/24 documented as of this encounter
--- OUTSIDE RECORDS SUMMARY | 2025-05-11 16:20 | XMS_ITS ---
Author Organization [facility] Address [address] [facility] [address] [place] [address] Phone Care Team Providers Care Cisco Consultant Name Role Phone Alonso Khan MD, PhD Unavailable Brandon Bruner MD Primary Care Provider [phone] Johann Santana MD Unavailable Active Problems Problem [...]
--- OUTSIDE RECORDS SUMMARY | 2025-05-11 16:20 | XMS_ITS | Clinical Summary ---
Author Organization [facility] Address [address] [facility] [address] [place] [address] Phone Care Team Providers Care Systems Test Analyst Name Role Phone Alonso Khan MD, PhD Unavailable Brandon Bruner MD Primary Care Provider [phone] Johann Santana MD Unavailable Allergies No known [...] PCV) 1998 PAP SMEAR 2000 MAMMOGRAM 2019 COLOGUARD 2024 COLONOSCOPY 2024 COLORECTAL CANCER SCREENING 2024 FIT TEST 2024 FOBT 2024 SIGMOIDOSCOPY 2024 VIRTUAL COLONOSCOPY 2024 INFLUENZA VACCINE (#1) 2025 COVID-19 VACCINE (2 - 2024-2 6 season) 2025 08/16/2020 SMOKING STATUS SCREENING (On ce After 26 [...] Devices Not on file Insurance Care Teams Systems Test Analyst Relationship Specialty Start Date End Date Brandon Bruner MD [address] [place] [address] [place] [address] PCP - General Internal Medicine 10/04/20 Alonso Khan MD, PhD [address] [place] [phone] [email or web address] Primary Oncologist Medical Oncology 09/28/20 Johann Santana MD [address] [place] [phone] [email or web address] 10/13/20 Additional Source Comments The information contained in this document represents components of the legal health record. It is not the complete legal health record.[facility]
--- OUTSIDE RECORDS SUMMARY | 2025-05-11 16:20 | XMS_ITS | Clinical Summary ---
Author Organization Patient Business [facility] Address [address] [place] [address] Care Team Providers Care Sports Lawyer Name Role Phone Steven Barber MD Primary [...] Health Maintenance Due Date Last Done Comments Colorectal Cancer Screening: Colonoscopy 1979 DTaP,Tdap,and Td Vaccines (1 - Tdap) 1998 Hepatitis B Vaccines (1 of 3 - 19+ 3-dose series) 1998 HPV Vaccines (1 - 3-dose SCD M series) 2006 HIV Screening 10/18/2021 Hepatitis C Screening 10/18/2021 Social Influencers of Health Screening 10/18/2021 Depression Screening 07/02/2024 COVID-19 Vaccine (2024-2 6 season) 2025 07/13/2021, 09/23/2020, 08/16/2020 Influenza Vaccine (#1) 2025 Breast Cancer Screening 10/10/2026 10/11/19, 11/20/2022, 08/18/2021 Cervical Cancer Screening: P ap Smear 08/22/2027 08/22/2024 RSV Immunization Adult Patients (1 - 1-dose 75+ series) 2054 HIB Vaccines Aged Out No longer eligi [...] for biopsy. PQRI CPT II 3342F Code 08081, 00414 PQRI 225 CPT II 7025F TISSUE DENSITY: There are scattered areas of fibroglandular density. (BI-RADS category B) IMPRESSION: Benign. BI-RADS CATEGORY: 2 - BENIGN RECOMMENDATION: Screening bilateral mammogram is recommended in 1 year. Mammo Location: [facility], [address] [place] [address] -------- FINAL REPORT -------- Dictated By: Marcus Cope Dictated Date: 10/10/2024 11:24 ET Assigned Physician: Marcus Cope Reviewed and Electronically Signed By: Marcus Cope Signed Date: 10/10/2024 11:34 ET Workstation ID: [id number] Transcribed By: Self Edit Transcribed Date: 10/10/2024 [...] and CC projection is performed in the Hi-Midiaographe 2000-D unit. Computer aided detection utilizing the iCAD system was [...] MLO and CC projection is performed in theHi-Midiaographe 2000-D unit. Computer aided detection utilizing the [employer]ystem was utilized. FINDINGS: The breasts are again [...] for biopsy. PQRI CPT II 3342F Code 81322, 64343 PQRI 225 CPT II 7025F TISSUE DENSITY: There are scattered areas of fibroglandular density.(BI-RADS category B) IMPRESSION: Benign. BI-RADS CATEGORY: 2 - BENIGN RECOMMENDATION: Screening bilateral mammogram is recommended in 1 year. Mammo Location: [facility], [facility], [address] [place] [id number] -------- FINAL REPORT -------- Dictated By: Marcus Cope Dictated Date: 10/10/2024 11:24 ET Assigned Physician: Marcus Cope Reviewed and Electronically Signed By: Marcus Cope Signed Date: 10/10/2024 11:34 ET Workstation ID: [id number] Transcribed By: Self Edit Transcribed Date: 10/10/2024 11:25 ET us Steven Pisano MD IMG BI PROCEDURES Final Result * Pap smear (08/22/2024 12:00 AM EST) Interpretation Negative for intraepithelial lesion or malignancy 08/26/2024 3:[address] [facility] General Categorization Negative 08/26/2024 3:[address] [facility] LMP 2024 08/26/2024 3:[address] [facility] Specimen Adequacy Satisfactory for evaluation, endocervical/khalil sformation zone component present 08/26/2024 3:[address] [facility] Pap Methodology Liquid Based Pap Test 08/26/2024 3:[address] [facility] Disclaimer The Pap test is a screening test which carries an inherent false negative rate. These test results should be correlated with the patient's clinical findings and history. This Pap test was processed using an automated screening system. Technical cytopathology services provided by [facility], at [address] [place] [id number] (CLIA # [id number]/Maria Dolores Meade MD, Dope Dry House Operator.) 08/26/2024 3:[address] [facility] Console Pap Interpretation Reported 08/26/2024 3:[address] [facility] Brushing/Spatula Cervix uteri structure / Unknown 08/22/2024 08/25/2024 7:54 AM EST us Steven Pisano MD LAB CYTOLOGY ORDERABLES Final Result [facility] [address] [place] [address], from Last 3 Months or Most Recently Relevant to Health Maintenance Insurance Care Teams Sports Lawyer Relationship Specialty Start Date End Date Steven Barber MD [address] [place] [address] Dr Cali [place] PCP - General Family Medicine 08/25/24
--- OUTSIDE RECORDS SUMMARY | 2025-05-11 16:20 | XMS_ITS | Encounter Summary ---
Author Organization [facility] Address [address] [facility] [address] [place] [address] Phone Care Team Providers Care Washery Boss Name Role Phone Alonso Khan MD, PhD Unavailable Brandon Bruner MD Primary Care Provider [phone] Johann Santana MD Unavailable Encounter Details Date Type Department Care Team (Late st Contact Info) Description 04/07/2024 Transcribe Orders [facility] Specimen Processing [address] [place] [address] Maria Dolores Ray, [facility] [address] [facility], [address] [place] [phone] [email or web address] Social History Tobacco Use [...] on filedocumented in this encounter Care Teams Washery Boss Relationship Specialty Start Date End Date Brandon Bruner MD [address] [place] [address] [facility] [place] [address] PCP - General Internal Medicine 10/04/20 Alonso Khan MD, PhD [address] [place] [phone] [email or web address] Primary Oncologist Medical Oncology 09/28/20 Johann Santana MD [address] [place] [address] [email or web address] Medical Oncology 10/13/20 documented as of this encounter Additional Source Comments The information contained in this document represents components of the legal health record. It is not the complete legal health record.[facility]
== END ==
LOC: HO.SL 14:01
PROVIDERS: PCP Family Medicine; Visit Provider Physician Assistant Medical
DX: G47.19 Other hypersomnia (principal)
CPT/HCPCS: 95806

== ENCOUNTER → 2025-05-11 14:33 | Outpatient (BNV) | payer OTHER, SELFPAY | PROVIDERS: PCP Family Medicine; Visit Provider Psychiatry & Neurology Neurology | DX: G47.19 Other hypersomnia (principal) | CPT/HCPCS: 95806 ==